=== PATIENT | male | born 1980 | race Caucasian/White ===

== ENCOUNTER 2016-06-08 11:27 | Inpatient (IN) ==
[2016-06-08 12:51] LABS: Bilirubin,Urine Negative (Negative); Blood,Urine Negative (Negative); Color,Urine Yellow (Yellow); Glucose,Urine (UA) Normal (Normal); Ketones,Urine Trace mg/dL (Negative); Leukocyte Esterase,Urine Negative (Negative); Nitrite,Urine Negative (Negative); PH,Urine 7.5 pH Units (5.0-8.0); Protein,Urine Negative (Neg-Trace); Specific Gravity,Urine 1.013 (1.010-1.025)
[2016-06-08 12:54] LABS: Bacteria,Urine None Seen per hpf (None-Few); Hyaline Casts,Urine None Seen per lpf (None-Few); RBC,Urine 0-3 per hpf (0-3); Squamous Epithelial Cell,Urine Few per lpf (None-Few)
[2016-06-08 13:00] LABS: Clarity,Urine Slightly Hazy (Clear)
[2016-06-08 13:01] LABS: Basophils % 0.3 %; Eosinophils # 0.1 K/mcL (0.0-0.6); Eosinophils % 0.7 %; Hematocrit 38.2 % (37.5-50.1); Hemoglobin 13.8 g/dL (12.9-16.9); Immature Granulocytes % 0.4 % (0-4); Lymphocytes # 2.1 K/mcL (0.6-4.6); Lymphocytes % 19.8 %; Mean Corpuscular HGB Conc 36.1 g/dL (31.6-35.5); Mean Corpuscular Hemoglobin 32.8 pg (28.0-33.3); Mean Corpuscular Volume 90.7 fL (83.0-100.0); Mean Platelet Volume 10.1 fL (9.4-12.4); Monocytes # 0.9 K/mcL (0.0-1.3); Monocytes % 8.8 %; Neutrophils # 7.4 K/mcL (1.6-8.9); Platelet Count 316 K/mcL (140-400); Red Blood Count 4.21 M/mcL (4.19-5.50); Red Cell Distribution Width 12.4 % (11.5-14.5)
[2016-06-08 13:10] LABS: Alanine Aminotransferase 20 Units/L (0-55); Albumin 3.3 g/dL (3.5-5.0); Albumin/Globulin Ratio 0.8 (1.1-2.2); Alkaline Phosphatase 110 Units/L (38-126); Amylase 35 Units/L (25-125); Aspartate Amino Transferase 15 Units/L (5-34); BUN/Creatinine Ratio 10 (6-26); Bilirubin,Direct 0.4 mg/dL (0.0-0.5); Bilirubin,Indirect 0.5 mg/dL (0.0-1.2); Bilirubin,Total 0.9 mg/dL (0.2-1.2); Blood Urea Nitrogen 9 mg/dL (8-26); Calcium 9.5 mg/dL (8.6-10.8); Carbon Dioxide 23 mEq/L (19-29); Chloride 101 mEq/L (98-109); Globulin 4.4 g/dL (2.4-3.5); Glucose 98 mg/dL (70-99); Lipase 11 Units/L (8-78); Osmolality,Calculated 281 (280-300); Potassium 3.5 mEq/L (3.5-4.5); Sodium 136 mEq/L (136-145); Total Protein 7.7 g/dL (6.0-8.3); eGFR For African Americans > 60 (> 60); eGFR For Non-African Americans > 60 (> 60)
--- NOTE | 2016-06-08 14:07 | Emergency Department Note ---
Disposition Clinical Impression: Abdominal abscess Disposition: Admitted As Inpatient Condition: Good Abdominal Pain HPI - General Chief Complaint: ED Abdominal Pain Stated Complaint: abd pain Time Seen by Provider: 06/08/16 12:17 Source: patient, other Mode of arrival: ambulatory Limitations: other (mild MRDD) Nursing Notes Reviewed: Yes Vital Signs Reviewed: Yes - History of Present Illness Pt Subjective Complaint: abdominal pain Onset (ago): day(s) (10) Consistency: intermittent Location: suprapubic Pain Scale: 5 Quality: aching Radiation: none Improves with: nothing Worsens with: nothing Associated symptoms: Denies: diarrhea, fever, chills, hematemesis, hematochezia Treatments prior to arrival: none - Related Data Home Medications Medication Instructions Recorded Confirmed No Known Home Drugs 06/08/16 06/08/16 Allergies Allergy/AdvReac Type Severity Reaction Status Date / Time No Known Allergies Allergy Verified 06/08/16 12:04 All systems ED: reviewed and negative except as stated. Constitutional: Denies: fever, chills, weakness Respiratory: Denies: cough Gastrointestinal: Denies: vomiting, diarrhea, melena, hematochezia Abdominal Pain PMH - Past Medical History Medical history: Reports: other Male Surgical History: Reports: other Psychiatric history: Reports: other - Social History Smoking status: Current every day smoker Alcohol use: Reports: none Drug use: Reports: none Physical Exam - General Limitations: other General appearance: alert, in no apparent distress - Head Head exam: atraumatic, normocephalic, normal inspection - Eye Eye exam: Present: normal appearance, PERRL, EOMI - Expanded Eye Exam Pupils: Left: reactive - ENT ENT exam: normal exam, normal oropharynx, mucous membranes moist - Expanded ENT Exam External ear exam: Present: normal external inspection Mouth exam: Present: normal external inspection Teeth exam: Present: normal inspection Throat exam: Present: normal inspection - Neck Neck exam: Present: normal inspection, full ROM, trachea midline - Chest Chest inspection: Present: normal inspection, symmetric chest wall rise - Respiratory Respiratory exam: Present: normal lung sounds bilaterally - Cardiovascular Cardiovascular exam: Present: regular rate, normal rhythm, normal heart sounds - Abdominal Exam Abdominal exam: Present: soft, normal bowel sounds. Absent: guarding, rebound Abdominal tenderness: Present: suprapubic, mild - Extremities Exam Extremities exam: Present: normal inspection, full ROM. Absent: tenderness, pedal edema - Expanded Upper Extremity Exam Shoulder exam: Present: normal inspection, full ROM Arm exam: Present: normal inspection, full ROM Elbow exam: Present: normal inspection, full ROM Forearm/Wrist exam: Present: normal inspection, full ROM Hand exam: Present: normal inspection, full ROM Vascular exam: Normal: capillary refill, radial pulse - Expanded Lower Extremity Exam Hip/Pelvis exam: Present: normal inspection, full ROM Upper leg exam: Present: normal inspection, full ROM Knee exam: Present: normal inspection, full ROM Lower leg exam: Present: normal inspection, full ROM Ankle exam: Present: normal inspection, full ROM Foot/toe exam: Present: normal inspection, full ROM Neurovascular/Tendon exam: Absent: motor deficit, sensory deficit, tendon deficit - Back Exam Back exam: Present: normal inspection, full ROM. Absent: tenderness - Neurological Exam Neurological exam: Present: alert, oriented X3 - Expanded Neurological Exam Patient oriented to: Present: person, place, time Coma Scale Eye Opening: Spontaneous Coma Scale Motor Response: Obeys Commands Coma Scale Verbal Response: Oriented Coma Scale Total: 15 - Psychiatric Psychiatric exam: Present: normal affect, normal mood - Skin Skin exam: Present: warm, dry, intact, normal color Course Vital Signs Temperature 98 F 06/08/16 11:58 Pulse Rate 98 06/08/16 11:58 Respiratory Rate 16 06/08/16 11:58 Blood Pressure 106/75 06/08/16 11:58 O2 Sat by Pulse Oximetry 100 06/08/16 11:58 Temperature 98 F 06/08/16 11:58 Pulse Rate 98 06/08/16 11:58 Respiratory Rate 16 06/08/16 11:58 Blood Pressure 106/75 06/08/16 11:58 O2 Sat by Pulse Oximetry 100 06/08/16 11:58 Oxygen Delivery Oxygen Delivery Room Air Abdominal Pain - MDM Narrative Medical decision making narrative: Dr. chang consulted recommended abx dr. hernández admitted, dr. pratt recommends GI no acute surgical intervention - Differential Diagnosis Differential Diagnosis: Likely: abdominal pain non-specific, abdominal pain mimics ectopic , acute appendicitis, constipation, colonic obstruction , diverticulitis, ischemic bowel, pancreatitis, small bowel obstruction - Medical Records Medical records reviewed: Yes I reviewed the patient's medical records. - Lab Data Lab results reviewed: Yes I reviewed the patient's lab results. Result diagrams: 06/08/16 12:25 06/08/16 12:25 Lab Results 06/08/16 06/08/16 06/08/16 Range/Units 12:23 12:25 12:25 WBC 10.5 (4.3-11.1) K/mcL RBC 4.21 (4.19-5.50) M/mcL Hgb 13.8 (12.9-16.9) g/dL Hct 38.2 (37.5-50.1) % MCV 90.7 (83.0-100.0) fL MCH 32.8 (28.0-33.3) pg MCHC 36.1 H (31.6-35.5) g/dL RDW 12.4 (11.5-14.5) % Plt Count 316 (140-400) K/mcL MPV 10.1 (9.4-12.4) fL Immature Gran % 0.4 (0-4) % Seg Neutrophils % 70.0 % Lymphocytes % 19.8 % Monocytes % 8.8 % Eosinophils % 0.7 % Basophils % 0.3 % Neutrophils # 7.4 (1.6-8.9) K/mcL Lymphocytes # 2.1 (0.6-4.6) K/mcL Monocytes # 0.9 (0.0-1.3) K/mcL Eosinophils # 0.1 (0.0-0.6) K/mcL Basophils # 0.0 (0.0-0.2) K/mcL Sodium 136 (136-145) mEq/L Potassium 3.5 (3.5-4.5) mEq/L Chloride 101 (98-109) mEq/L Carbon Dioxide 23 (19-29) mEq/L BUN 9 (8-26) mg/dL Creatinine 0.87 (0.72-1.25) mg/dL Est GFR ( Amer) > 60 (> 60) Est GFR (Non-Af Amer) > 60 (> 60) BUN/Creatinine Ratio 10 (6-26) Glucose 98 (70-99) mg/dL Calculated Osmolality 281 (280-300) Calcium 9.5 (8.6-10.8) mg/dL Total Bilirubin 0.9 (0.2-1.2) mg/dL Direct Bilirubin 0.4 (0.0-0.5) mg/dL Indirect Bilirubin 0.5 (0.0-1.2) mg/dL AST 15 (5-34) Units/L ALT 20 (0-55) Units/L Alkaline Phosphatase 110 (38-126) Units/L Serum Total Protein 7.7 (6.0-8.3) g/dL Albumin 3.3 L (3.5-5.0) g/dL Globulin 4.4 H (2.4-3.5) g/dL Albumin/Globulin Ratio 0.8 L (1.1-2.2) Amylase 35 (25-125) Units/L Lipase 11 (8-78) Units/L Urine Color Yellow (Yellow) Urine Clarity Slightly Hazy (Clear) Urine pH 7.5 (5.0-8.0) pH Units Ur Specific [place] 1.013 (1.010-1.025) Urine Protein Negative (Neg-Trace) mg/dL Urine Glucose (UA) Normal (Normal) mg/dL Urine Ketones Trace H (Negative) mg/dL Urine Blood Negative (Negative) Urine Nitrite Negative (Negative) Urine Bilirubin Negative (Negative) Urine Urobilinogen 4.0 H (Normal) mg/dL Ur Leukocyte Esterase Negative (Negative) Urine Microscopic RBC 0-3 (0-3) per hpf Ur Squamous Epith Cells Few (None-Few) per lpf Urine Bacteria None Seen (None-Few) per hpf Hyaline Casts None Seen (None-Few) per lpf Ur Culture Indicated? NO (NO) - Radiology Data Radiology results reviewed: Yes I reviewed the patient's radiology results.
[2016-06-08] MEDS ORDERED: MetroNIDAZOLE 500 MG/100 ML 500 MG/100 ML BAG IVPB STA (14:53)
[2016-06-08] MEDS ORDERED: Acetaminophen 325 MG TABLET PO PRN (15:34)
[2016-06-08] MEDS ORDERED: Naloxone 0.4 MG/ML INJ IVP PRN (15:34)
[2016-06-08] MEDS ORDERED: *HR* Morphine 2 MG/ML SYRINGE IVP PRN (15:34)
--- NOTE | 2016-06-08 16:42 | Internal Med History&Physical ---
<Bethany Cartagena - Last Filed: 06/08/16 17:09> Date of Encounter: 06/08/16 Time of Encounter: 16:25 Assessment and Plan (1) Suprapubic abdominal pain Current visit: Yes Status: Acute Patient with 5 mo history of intermittent achy suprapubic abdominal pain with associated loose mucous covered stools. On Exam patient is afebrile. There is tenderness to the suprapubic region without signs of an acute abdomen. WBC normal 10.5. CT abdomen/pelvis showing mild wall thickening and submucosal fatty deposition in the terminal ileum with an adjacent complex fluid collection suspicious for an abscess. There is secondary inflammation noted around the appendix and sigmoid colon. Finding are suggestive of Crohn's disease with contained perforation. Plan: -Patient made NPO, started maintenance fluids (NS 100cc/hr) -IV Abx Cipro/Metronidazole -Also start mesalamine. -Telemetry/Vitals Q4H -CRP, ESR, c-diff, ANCA-Ab, Saccharomyces cerevisiae abs ordered -Pain control Tylenol (mild pain), [place] 5-325 Q4hr (moderate pain), Morphine 2mgIVP Q4hr (severe pain) -Surgery/GI consult, appreciate any further recommendations (2) Abdominal abscess Current visit: Yes Status: Acute See above. (3) History of hepatitis Current visit: Yes Status: Acute Patient reports prior hospitalization at [facility] for what sounds like acute hepatitis B and C. - Will check viral hepatitis panel. - Consider obtain medial record from [facility]. (4) DVT prophylaxis Current visit: Yes Status: Acute - SQ heparin. Internal Medicine - H&P: HPI Chief complaint: "My stomach hurts" Admitted From: Emergency Dept Plans for Post Hospital Care: Home History of present illness: Mr. Pennington is a 35 year old male with a history of smoking, HepB/C, IV drug use, who presented to the [facility] ED with the chief complaint of "my stomach hurts ". At baseline the patient is developmentally delayed and lives with a caregiver and one other roommate arranged by [employer]. The patient does not have a PCP and his CODE STATUS is full code. The history was obtained from the patient as well as an employee of [employer] who has accompanied him to the hospital. The patient reports 5 months of intermittent 5/10 suprapubic abdominal pain as well as loose stools for 3-4 months with clear mucous noted on tissue paper. The pain is relieved by OTC gas medication. Nothing makes his pain worse. He denies recent weight change, fever , chills, n/v, constipation, blood in his stool, or any other symptoms. His pain has not limited oral intake. Denies family history of IBD or other GI problems. Denies drinking alcohol or taking any other OTC or RX medications on a daily basis. Patient reports prior hospitalization at [facility] for what sounds like acute hepatitis B and C. Patient admits history of IVDU in the past. In the ED vitals T98.0 H98 RR16 BP 106/75 SpO2 100% on RA. CT of the abdomen/ pelvis without contrast was done which showed mild wall thickening and submucosal fatty deposition in the terminal ileum with an adjacent complex fluid collection suspicious for an abscess. There is secondary inflammation noted around the appendix and sigmoid colon. Finding are suggestive of Crohn's disease with contained perforation. The patient was admitted to internal medicine for abdominal pain and abscess, Attending Dr. Seymour. Past Med Surg Social Fam HX - Past Medical History Medical history: hepatitis (B/C - diagnosed at [facility]), other (developmental delay ) Psychiatric history: other - Social History Smoking Status: Current every day smoker Smokeless Tobacco Status: No (Both e-cigarette and cigarettes ) Alcohol use: none Drug use: none Current living situation: Home ([facility] Living home with caregiver and one roommate) Activity Level: Independent ambulation Recent Out of Country Travel Within the Last 8 Weeks: No Internal Medicine - H&P: Meds No Known Home Drugs 06/08/16 [History] Allergies No Known Allergies Allergy (Verified 06/08/16 12:04) All Systems PM: A 10-system review of systems was performed and is negative for pertinent findings except as documented above in the HPI. - Constitutional Constitutional: no anorexia, no chills, no fever(s) - EENT Eyes: no change in vision Ears: no decreased hearing Nose, mouth and throat: no dysphagia, no mouth lesions, no mouth pain, no odynophagia - Cardiovascular Cardiovascular ROS IM: no chest pain, no diaphoresis, no palpitations - Respiratory Respiratory: no cough, no dyspnea, no hemoptysis - Gastrointestinal Gastrointestinal: as per HPI - Genitourinary Genitourinary ROS male: no difficulty urinating, no dysuria, no hematuria - Musculoskeletal Musculoskeletal ROS IM: no arthralgias, no back pain, no myalgias - Integumentary Integumentary IM: no pruritus, no rash - Neurological Neurological ROS: no focal weakness, no numbness, no tingling - Hematologic/Lymphatic Hematologic/Lymphatic: no easy bleeding, no easy bruising - Constitutional Vitals: Temp Pulse Resp BP Pulse Ox 98 F 98 18 116/72 100 06/08/16 11:58 06/08/16 11:58 06/08/16 15:16 06/08/16 15:16 06/08/16 11:58 General appearance: Present: cooperative, A&O X 3, pleasant. Absent: no acute distress - Head Head exam: Present: atraumatic, normocephalic - Eye Eye exam: Present: PERRL, conjuntiva pink, sclera anicteric Pupils: Present: PERRL - Neck Neck exam general surgery: Present: normal inspection, trachea midline - Respiratory Respiratory exam: Present: CTAB. Absent: accessory muscle use, prolonged expiratory phase, rales, respiratory distress, rhonchi, wheezes - Cardiovascular Cardiovascular exam: Present: RRR, +S1, +S2. Absent: clicks, diastolic murmur, gallop, rubs, systolic murmur - GI/Abdominal GI/Abdominal exam: Present: hyperactive bowel sounds, soft, tenderness (mild tenderness to suprapubic region). Absent: bruit, distended, firm, guarding, rebound, rigid - Rectal Rectal exam: Present: deferred - Extremities Exam Extremities exam: Present: normal inspection, warm. Absent: calf tenderness, pedal edema Additional comments: posterior tibial pulses 2/4 B/L LE - Neurological Exam Neurological exam: Present: CN II-XII intact, oriented X3, no focal deficits. Absent: pronater drift, facial droop, speech deficit - Psychiatric Psychiatric exam: Present: normal affect, normal mood - Skin Skin exam: Present: dry, intact Internal Med - H&P Results - Labs CBC & Chem 7: 06/08/16 12:25 06/08/16 12:25 - Impressions ITS Impressions Abdomen/Pelvis CT 06/08/16 12:51 IMPRESSION: 1. Complex fluid collection identified in the pelvis measuring 6.4 x 4.4 x 4.1 cm, compatible with an abscess. The collection appears to be adjacent to the terminal ileum, suggestive of Crohn's disease with contained perforation. Extension of this fluid collection is seen to the sigmoid colon, risk for fistula formation. Other etiologies such as perforated Meckel's diverticulum is considered less likely. 2. Appendix and sigmoid colon demonstrate secondary inflammation. Findings were discussed with Dr. Vargas on 06/08/2016 at 2:07 p.m. D/ / 06/08/2016 14:14:54 Margarita Huggins MD / lise Interpreting Provider: Margarita Huggins MD <Leno Seymour T - Last Filed: 06/08/16 17:38> Internal Medicine - H&P: HPI History of present illness: Mr. Pennington is a 35 year old male All Systems PM: A 10-system review of systems was performed and is negative for pertinent findings except as documented above in the HPI. - Constitutional Vitals: Temp Pulse Resp BP Pulse Ox 98.1 F 85 16 107/73 97 06/08/16 16:23 06/08/16 16:23 06/08/16 16:23 06/08/16 16:23 06/08/16 16:23 Internal Med - H&P Results - Labs CBC & Chem 7: 06/08/16 12:25 06/08/16 12:25 - Attending Attestation I examined this patient and my medical decision-making was reviewed with the [facility] TECHNICIAN/PA/Advanced Practice Nurse/Resident Physician. I agree with the documented findings, disposition and treatment plan as described except to the extent set forth below. Seen at bedside, with resident and telephonic nurse case manager 35 Y/O M with hx of recent hospitalization for Hep B/C, MRDD He endorsed >4 months history of abdominal pain worse inn RLQ and diarrhea with mucus, no fever or chills, no chronic back pain, no hematochezia, denies family hx . Daily smoker Physical exam: Not toxic looking, VSS, speaks full sentences no mouth sores, chest is clear, S1, s2, RLQ and LLQ tenderness, no guarding, no peritoneal signs , no spine tenderness Labs and Imaging reviewed: CBC/Chem/LFT unremarkable Abd CT with terminal ileum thickening as well s submucosal fatty deposition adjacent to terminal ileum with abscess formation, possible enterocolic fistula , loculated peritoneal fluid. A/P: suspected Chron's disease with phlegmon. Consult GI, Surgery, Start mesalamine, send ANCA/ASCA/CRP/ESR/Hepatitis panel, r/o C.diff Continue cipro/flagyl. start mesalamine, SW consult Rest of details as in resident's documentation
[2016-06-08] MEDS: 0.9 % Sodium Chloride 1,000 ML IVC SCH (17:42)
[2016-06-08] MEDS: Mesalamine 250 MG CAPSULE.ER PO SCH ×2 (17:52→22:13)
[2016-06-08] MEDS: *HR* Heparin 5,000 UNIT/ML VIAL SQ SCH (17:56)
--- NOTE | 2016-06-08 17:56 | General Surgery Consult Note ---
<Clementina Tomlinson - Last Filed: 06/08/16 18:00> Date of Encounter: 06/08/16 Time of Encounter: 17:00 Assessment and Plan (1) Abdominal abscess Current Visit: Yes Status: Acute Recommend GI consultation for suspected Crohn's disease IR consult for drainage of abscess- notified today NPO after midnight IV antibiotics- Cipro and Flagyl Supportive care/pain control Serial abdominal exams No urgent surgical intervention indicated at this time PT/INR in the am prior to IR drainage (2) Suprapubic abdominal pain Current Visit: Yes Status: Acute Supportive care/pain control Serial abdominal exams IR drainage of abscess 06/09/16 IV antibiotics- Cipro and Flagyl (3) DVT prophylaxis Current Visit: Yes Status: Acute Heparin 5,000 units SQ twice daily for DVT prophylaxis History of Present Illness Consult date: 06/08/16 Reason for consult: abdominal pain Requesting physician: Bethany Cartagena History of present illness: Mr. Pennington is a very pleasant 35 year old male who presented to the ED with at least a 5 month history of lower abdominal pain. The history is obtained from the patient and his mattress spring encaser who is at the bedside. He resides with a caregiver and a roomate who are currently not present. the mattress spring encaser states that she interacts with the patient 2 times per month. The patient states that the pain comes and goes. He states that it is comes and goes in various locations. He states that it has been located in the suprapubic region for the past 2 days. Denies any specific radiating factors. Denies any nausea or vomiting. Denies any fevers or chills. He does admit to diarrhea up 3-4 times per day. He states that he does pass mucous in his stools. Denies any constipation. Denies any changes in weight. Denies any melena or hematochezia. Denies any difficulty with urination. We have been asked to see and evaluate the patient for his abnormal CT scan findings. Past Med Surg Social Fam HX - Past Medical History Source: old records reviewed Medical history: hepatitis (B/C - diagnosed at [facility]), other (developmental delay ) Psychiatric history: other - Social History Smoking Status: Current every day smoker Smokeless Tobacco Status: No (Both e-cigarette and cigarettes ) Alcohol use: none Drug use: none Current living situation: Correction (Lives with a caregiver and a roomate) Activity Level: Independent ambulation Medications and Allergies No Known Home Drugs 06/08/16 [History] Allergies No Known Allergies Allergy (Verified 06/08/16 12:04) Review of Systems All systems PM: reviewed and no additional remarkable complaints except as stated (in the HPI) All systems PM: A 10-system review of systems was performed and is negative for pertinent findings except as documented above in the HPI. General Surgery Exam Initial Vital Signs Temp Pulse Resp BP Pulse Ox 98 F 98 16 106/75 100 06/08/16 11:58 06/08/16 11:58 06/08/16 11:58 06/08/16 11:58 06/08/16 11:58 - General physical appearance well developed, well nourished, no distress - Eyes normal ocular movement - ENT normal mucosa, atraumatic, normocephalic - Neck trachea midline - Respiratory normal expansion, normal respiratory effort, clear to auscultation - Cardiovascular Cardiovascular exam: Present: RRR - Abdomen Abdomen general surgery: Present: bowel sounds present, soft, tender Abdominal Tenderness: Present: suprapubic - Integumentary Integumentary general surgery: Present: warm and dry - Neurologic Present: CN 2-12 grossly intact - Musculoskeletal Present: normal gait, normal posture - Psychiatric Psychiatric general surgery: Present: appropriate, oriented to person, oriented to place, oriented to time, speech is normal, other (developmentally delayed) Exam Initial Vital Signs Temp Pulse Resp BP Pulse Ox 98 F 98 16 106/75 100 06/08/16 11:58 06/08/16 11:58 06/08/16 11:58 06/08/16 11:58 06/08/16 11:58 Results - Labs 06/08/16 12:25 06/08/16 12:25 Abnormal lab results MCHC 36.1 g/dL (31.6-35.5) H 06/08/16 12:25 ESR 71 mm/hr (0-10) H 06/08/16 16:29 C-Reactive Protein 111 mg/L (Less than 5) H 06/08/16 16:29 Albumin 3.3 g/dL (3.5-5.0) L 06/08/16 12:25 Globulin 4.4 g/dL (2.4-3.5) H 06/08/16 12:25 Albumin/Globulin Ratio 0.8 (1.1-2.2) L 06/08/16 12:25 Urine Ketones Trace mg/dL (Negative) H 06/08/16 12:23 Urine Urobilinogen 4.0 mg/dL (Normal) H 06/08/16 12:23 All other labs normal. - Imaging CT scan - abdomen: report reviewed CT scan - pelvis: report reviewed Additional studies: Abdomen/Pelvis CT 06/08/16 12:51 IMPRESSION: 1. Complex fluid collection identified in the pelvis measuring 6.4 x 4.4 x 4.1 cm, compatible with an abscess. The collection appears to be adjacent to the terminal ileum, suggestive of Crohn's disease with contained perforation. Extension of this fluid collection is seen to the sigmoid colon, risk for fistula formation. Other etiologies such as perforated Meckel's diverticulum is considered less likely. 2. Appendix and sigmoid colon demonstrate secondary inflammation. Findings were discussed with Dr. Vargas on 06/08/2016 at 2:07 p.m. D/ / 06/08/2016 14:14:54 Margarita Huggins MD / lise Interpreting Provider: Margarita Huggins MD Consult Discharge Plan - Plan Referrals: NO,PCP [Primary Care Provider] - - Attending Attestation I examined this patient and my medical decision-making was reviewed with the WHITEWASHER/PA/Advanced Practice Nurse/Resident Physician. I agree with the documented findings, disposition and treatment plan as described except to the extent set forth below. <Genna Castro - Last Filed: 06/10/16 10:17> Assessment and Plan (1) Terminal ileitis Current Visit: Yes Status: Acute pt CT scan shows terminal ileum inflammation with abscess that potentially the inflammation involves and is inflamming the colon. Patient denies history of diarrhea or bloody stools He is on antibiotics his abdominal pain is minimal given his CT results consult IR to place drain GI has been consulted as well will follow allowing in case any surgical intervention is needed but none is required at this time. Qualifiers: Digestive disease complication type: with abscess Qualified Code(s): K50.014 - Crohn's disease of small intestine with abscess (2) Abdominal abscess Current Visit: Yes Status: Acute (3) Suprapubic abdominal pain Current Visit: Yes Status: Acute History of Present Illness History of present illness: Patient states he has only had RLQ pain for the last few days. He is unable to describe what the pain feels like. He denies nausea, vomiting. He has had no Diarrhea or constipation. He denies any blood in his stool. He has never had pain like this previously. He is a very poor historian and has difficulty answering all but the simplest questions. Review of Systems All systems PM: A 10-system review of systems was performed and is negative for pertinent findings except as documented above in the HPI. General Surgery Exam Initial Vital Signs Temp Pulse Resp BP Pulse Ox 98 F 98 16 106/75 100 06/08/16 11:58 06/08/16 11:58 06/08/16 11:58 06/08/16 11:58 06/08/16 11:58 - Abdomen Abdomen general surgery: Present: bowel sounds present, soft, tender Abdominal Tenderness: Present: suprapubic (somewhat firm in the suprapubic area) - Integumentary Integumentary general surgery: Present: warm and dry. Absent: diaphoresis - Neurologic Present: CN 2-12 grossly intact - Musculoskeletal Present: normal gait, normal posture - Psychiatric Psychiatric general surgery: Present: A&Ox3 Exam Initial Vital Signs Temp Pulse Resp BP Pulse Ox 98 F 98 16 106/75 100 06/08/16 11:58 06/08/16 11:58 06/08/16 11:58 06/08/16 11:58 06/08/16 11:58 Results - Labs 06/10/16 08:03 06/10/16 08:03 Abnormal lab results RBC 3.73 M/mcL (4.19-5.50) L 06/10/16 08:03 Hgb 11.5 g/dL (12.9-16.9) L 06/10/16 08:03 Hct 34.1 % (37.5-50.1) L 06/10/16 08:03 ESR 71 mm/hr (0-10) H 06/08/16 16:29 PT 15.6 Seconds (9.4-12.1) H 06/09/16 04:42 Potassium 3.4 mEq/L (3.5-4.5) L 06/10/16 08:03 BUN 4 mg/dL (8-26) L 06/10/16 08:03 Creatinine 0.71 mg/dL (0.72-1.25) L 06/10/16 08:03 Glucose 101 mg/dL (70-99) H 06/10/16 08:03 Calcium 8.3 mg/dL (8.6-10.8) L 06/10/16 08:03 C-Reactive Protein 111 mg/L (Less than 5) H 06/08/16 16:29 Albumin 2.8 g/dL (3.5-5.0) L 06/09/16 04:42 Globulin 3.8 g/dL (2.4-3.5) H 06/09/16 04:42 Albumin/Globulin Ratio 0.7 (1.1-2.2) L 06/09/16 04:42 Urine Ketones Trace mg/dL (Negative) H 06/08/16 12:23 Urine Urobilinogen 4.0 mg/dL (Normal) H 06/08/16 12:23 Hep B Core IgM Ab Reactive (Nonreactive) H 06/09/16 04:42 Hepatitis C Ab Screen Reactive (Nonreactive) H 06/09/16 04:42 Diabetes panel 06/10/16 Range/Units 08:03 Sodium 138 (136-145) mEq/L Potassium 3.4 L (3.5-4.5) mEq/L Chloride 108 (98-109) mEq/L Carbon Dioxide 21 (19-29) mEq/L BUN 4 L (8-26) mg/dL Creatinine 0.71 L (0.72-1.25) mg/dL Glucose 101 H (70-99) mg/dL Calcium 8.3 L (8.6-10.8) mg/dL Calcium panel 06/10/16 Range/Units 08:03 Calcium 8.3 L (8.6-10.8) mg/dL Pituitary panel 06/10/16 Range/Units 08:03 Sodium 138 (136-145) mEq/L Potassium 3.4 L (3.5-4.5) mEq/L Chloride 108 (98-109) mEq/L Carbon Dioxide 21 (19-29) mEq/L BUN 4 L (8-26) mg/dL Creatinine 0.71 L (0.72-1.25) mg/dL Glucose 101 H (70-99) mg/dL Calcium 8.3 L (8.6-10.8) mg/dL Adrenal panel 06/10/16 Range/Units 08:03 Sodium 138 (136-145) mEq/L Potassium 3.4 L (3.5-4.5) mEq/L Chloride 108 (98-109) mEq/L Carbon Dioxide 21 (19-29) mEq/L BUN 4 L (8-26) mg/dL Creatinine 0.71 L (0.72-1.25) mg/dL Glucose 101 H (70-99) mg/dL Calcium 8.3 L (8.6-10.8) mg/dL All other labs normal. - Imaging CT scan - abdomen: report reviewed, image reviewed CT scan - pelvis: report reviewed, image reviewed (CT scans personally reviewed by myself) - Attending Attestation I examined this patient and my medical decision-making was reviewed with the WHITEWASHER/PA/Advanced Practice Nurse/Resident Physician. I agree with the documented findings, disposition and treatment plan as described except to the extent set forth below.
[2016-06-08] MEDS: *HR* HYDROcodone/Acet 5/325 mg TABLET PO PRN (20:00)
[2016-06-09] MEDS: MetroNIDAZOLE 500 MG/100 ML 500 MG/100 ML BAG IVPB SCH ×3 (00:09→15:10)
[2016-06-09] MEDS: 0.9 % Sodium Chloride 1,000 ML IVC SCH ×3 (05:15→21:41)
[2016-06-09] MEDS: *HR* Heparin 5,000 UNIT/ML VIAL SQ SCH ×2 (05:16→18:06)
[2016-06-09] MEDS: *HR* HYDROcodone/Acet 5/325 mg TABLET PO PRN ×3 (05:17→21:54)
[2016-06-09 06:01] LABS: Basophils % 0.3 %; Eosinophils # 0.1 K/mcL (0.0-0.6); Eosinophils % 0.7 %; Hematocrit 34.9 % (37.5-50.1); Immature Granulocytes % 0.4 % (0-4); Lymphocytes # 1.5 K/mcL (0.6-4.6); Lymphocytes % 15.4 %; Mean Corpuscular HGB Conc 34.1 g/dL (31.6-35.5); Mean Corpuscular Hemoglobin 31.5 pg (28.0-33.3); Mean Corpuscular Volume 92.3 fL (83.0-100.0); Monocytes # 0.8 K/mcL (0.0-1.3); Neutrophils # 7.2 K/mcL (1.6-8.9); Platelet Count 289 K/mcL (140-400); Red Blood Count 3.78 M/mcL (4.19-5.50); Red Cell Distribution Width 12.4 % (11.5-14.5); Segmented Neutrophils % 75.2 %
[2016-06-09 06:03] LABS: Hemoglobin 11.9 g/dL (12.9-16.9)
[2016-06-09 06:11] LABS: INR 1.4; Prothrombin Time 15.6 Seconds (9.4-12.1)
[2016-06-09 06:17] LABS: Alanine Aminotransferase 18 Units/L (0-55); Albumin 2.8 g/dL (3.5-5.0); Albumin/Globulin Ratio 0.7 (1.1-2.2); Alkaline Phosphatase 94 Units/L (38-126); Aspartate Amino Transferase 14 Units/L (5-34); BUN/Creatinine Ratio 9 (6-26); Bilirubin,Total 0.7 mg/dL (0.2-1.2); Blood Urea Nitrogen 7 mg/dL (8-26); Calcium 8.5 mg/dL (8.6-10.8); Carbon Dioxide 23 mEq/L (19-29); Chloride 106 mEq/L (98-109); Globulin 3.8 g/dL (2.4-3.5); Glucose 77 mg/dL (70-99); Osmolality,Calculated 283 (280-300); Potassium 3.8 mEq/L (3.5-4.5); Sodium 138 mEq/L (136-145); Total Protein 6.6 g/dL (6.0-8.3); eGFR For African Americans > 60 (> 60); eGFR For Non-African Americans > 60 (> 60)
[2016-06-09 07:11] LABS: Hepatitis A Antibody IgM Nonreactive (Nonreactive); Hepatitis B Surface Antigen Nonreactive (Nonreactive)
[2016-06-09 07:12] LABS: Hepatitis B Core IgM Reactive (Nonreactive); Hepatitis C Virus Antibody Reactive (Nonreactive)
[2016-06-09] MEDS: Mesalamine 250 MG CAPSULE.ER PO SCH ×4 (10:25→21:40)
--- NOTE | 2016-06-09 12:09 | Gastroenterology Consult Note ---
<AzevedoSamuel nix Mayra - Last Filed: 06/09/16 12:07> Date of Encounter: 06/09/16 Time of Encounter: 10:40 - Assessment and plan (1) Abdominal abscess Current Visit: Yes Status: Acute Assessment and plan: CT A/P without contrast showscomplex fluid collection, suspicious for abscess, adjacent to the terminal ileum, suggestive of Crohn's disease with contained perforation. CT A/P with oral and IV contrast ordered to evaluate for fistula formation.continue IV Cipro and Flagyl. IR to drain the abscess today. (2) Suprapubic abdominal pain Current Visit: Yes Status: Acute (3) History of hepatitis Current Visit: Yes Status: Acute Assessment and plan: History of hepatitis B/C. - Time Spent With Patient Total time spent is greater than 50% in coordination of care (as documented) at patient's floor/unit and/or counseling patient: GI History of Present Illness - Data of Consult Patient: new to practice Consult date: 06/09/16 Requesting Physician: Mariam Taylor CNP - Consult Narrative Reason for consult: possible Crohn's disease History of present illness: Mr. Pennington is a 35 year old male with PMHx of Hepatitis B/C, IV drug use who presented to the ED with complaint of abdominal pain. The patient is developmentally delayed and lives with a caregiver and another roommate. He denies fever, chills, nausea, or vomiting. He reports 3-4 episodes of diarrhea daily with passing some mucous. He denies melena or hematochezia. CT A/P without contrast shows complex fluid collection, suspicious for abscess, adjacent to the terminal ileum, suggestive of Crohns disease with contained perforation. Concerned for fistula formation. 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 - diagnosed at [facility]), other (developmental delay ) Psychiatric history: other - Social History Smoking Status: Current every day smoker Smokeless Tobacco Status: No (Both e-cigarette and cigarettes ) Alcohol use: none Drug use: none - Gastrointestinal Gastrointestinal: Present: as per HPI - Constitutional Constitutional: as per HPI - EENT Eyes: as per HPI Ears: Present: as per HPI Nose, mouth and throat: Present: as per HPI - Cardiovascular Cardiovascular ROS: Present: as per HPI - Respiratory Respiratory IM: Present: as per HPI - Genitourinary Genitourinary: Absent: change in color, Urinary frequency - Neurological ROS Neurological GI: Present: as per HPI - Hematologic/Lymphatic Hematologic/Lymphatic pediatric: Present: as per HPI - Musculoskeletal Musculoskeletal ROS GI: Present: as per HPI - Integumentary Integumentary GI: Present: as per HPI - Psychiatric ROS Psychiatric GI: Present: as per HPI - Endocrine Endocrine IM: Present: as per HPI - Constitutional Vitals: Temp Pulse Resp BP Pulse Ox 97.5 F L 73 18 117/70 98 06/09/16 10:57 06/09/16 10:57 06/09/16 10:57 06/09/16 10:57 06/09/16 10:57 General appearance: Present: cooperative, A&O X 3, no acute distress, answers questions appropriately - Head Head exam: Present: atraumatic, normocephalic - Eye Eye exam: Present: normal appearance, sclera anicteric - ENT ENT exam: Present: mucous membranes moist - Neck Neck exam general surgery: Present: normal inspection, trachea midline - Respiratory Respiratory exam: Present: CTAB. Absent: rales, rhonchi, wheezes - Cardiovascular Cardiovascular exam: Present: RRR, +S1, +S2 - GI/Abdominal GI/Abdominal exam: Present: soft, tenderness (suprapubic), no peritoneal signs. Absent: distended, firm, guarding - Rectal Rectal exam: Present: deferred - Extremities Exam Extremities exam: Present: warm - Neurological Exam Neurological exam: Present: no focal deficits Additional comments: developmentally delayed - Psychiatric Psychiatric exam: Present: normal affect, normal mood - Skin Skin exam: Present: dry, intact, normal color, warm Results - Labs CBC & Chem 7: 06/09/16 04:42 06/09/16 04:42 Labs: Last Result ESR 71 mm/hr (0-10) H 06/08/16 16:29 Calcium 8.5 mg/dL (8.6-10.8) L 06/09/16 04:42 C-Reactive Protein 111 mg/L (Less than 5) H 06/08/16 16:29 Entire Visit Hgb 11.9 g/dL (12.9-16.9) L D 06/09/16 04:42 Hct 34.9 % (37.5-50.1) L 06/09/16 04:42 PT 15.6 Seconds (9.4-12.1) H 06/09/16 04:42 Total Bilirubin 0.7 mg/dL (0.2-1.2) 06/09/16 04:42 AST 14 Units/L (5-34) 06/09/16 04:42 ALT 18 Units/L (0-55) 06/09/16 04:42 Amylase 35 Units/L (25-125) 06/08/16 12:25 Lipase 11 Units/L (8-78) 06/08/16 12:25 - ABG ABG results: PT/INR, D-dimer PT 15.6 Seconds (9.4-12.1) H 06/09/16 04:42 Consult Discharge Plan - Plan Referrals: NO,PCP [Primary Care Provider] - <Oly Jacobs - Last Filed: 06/09/16 18:00> Time of Encounter: 13:00 - Time Spent With Patient Total time spent is greater than 50% in coordination of care (as documented) at patient's floor/unit and/or counseling patient: GI History of Present Illness - Data of Consult Requesting Physician: Mariam Taylor CNP - Consult Narrative History of present illness: Mr. Pennington is a 35 year old male - Constitutional Vitals: Temp Pulse Resp BP Pulse Ox 98.1 F 82 17 115/71 97 06/09/16 15:42 06/09/16 15:42 06/09/16 15:42 06/09/16 15:42 06/09/16 15:42 Results - Labs CBC & Chem 7: 06/09/16 04:42 06/09/16 04:42 Labs: Last Result ESR 71 mm/hr (0-10) H 06/08/16 16:29 Calcium 8.5 mg/dL (8.6-10.8) L 06/09/16 04:42 C-Reactive Protein 111 mg/L (Less than 5) H 06/08/16 16:29 Entire Visit Hgb 11.9 g/dL (12.9-16.9) L D 06/09/16 04:42 Hct 34.9 % (37.5-50.1) L 06/09/16 04:42 PT 15.6 Seconds (9.4-12.1) H 06/09/16 04:42 Total Bilirubin 0.7 mg/dL (0.2-1.2) 06/09/16 04:42 AST 14 Units/L (5-34) 06/09/16 04:42 ALT 18 Units/L (0-55) 06/09/16 04:42 Amylase 35 Units/L (25-125) 06/08/16 12:25 Lipase 11 Units/L (8-78) 06/08/16 12:25 - ABG ABG results: PT/INR, D-dimer PT 15.6 Seconds (9.4-12.1) H 06/09/16 04:42 - Impressions Impressions Abdomen/Pelvis CT 06/09/16 12:00 IMPRESSION: 1. Similar appearance of complex fluid collection within the pelvis with surrounding inflammatory changes compatible with abscess. Changes of the terminal ileum are again suggestive of Crohn's disease. There is no evidence for gas within the pelvic fluid collection at this time. Additionally, oral contrast is present within the bowel lumen with no evidence for contrast extravasation and no evidence for contrast within the complex pelvic fluid collection. It is important to note that the contrast is not yet identified distal to the proximal colon with no contrast present within the sigmoid colon adjacent to the complex fluid collection which somewhat limits evaluation for a fistulous connection between the distal sigmoid colon and pelvic abscess. The absence of gas within a pelvic fluid collection would argue against definite fistula. D/ / Pawel Stewart MD / Pawel Stewart MD Interpreting Provider: Pawel Stewart MD - Attending Attestation I examined this patient and my medical decision-making was reviewed with the PAEDIATRIC SURGEON/PA/Advanced Practice Nurse/Resident Physician. I agree with the documented findings, disposition and treatment plan as described except to the extent set forth below. CT finding is concerning for Crohn disease with abdominal abscess now. Patient will be on IV antibiotics and will need a possible abscess drainage by IR.
--- NOTE | 2016-06-09 15:13 | General Surgery Progress Note ---
Date of Encounter: 06/09/16 Time of Encounter: 17:00 - Assessment and Plan (1) Abdominal abscess Current Visit: Yes Status: Acute GI consultation for suspected Crohn's disease IR consult for drainage of abscess- unable to be complete due to patient refusal today (will attempt again 06/10/16- patient now agreeable) May have clear liquids NPO after midnight IV antibiotics- Cipro and Flagyl Supportive care/pain control Serial abdominal exams No urgent surgical intervention indicated at this time agree with Shwetha Tomlinson assessment and plan (2) Suprapubic abdominal pain Current Visit: Yes Status: Acute Supportive care/pain control Serial abdominal exams IR drainage of abscess 06/10/16 IV antibiotics- Cipro and Flagyl (3) DVT prophylaxis Current Visit: Yes Status: Acute Heparin 5,000 units SQ twice daily for DVT prophylaxis Subjective Patient reports: no new complaints, feels better, still having pain, pain is less, voiding w/o difficulty, flatus, no bowel movement, afebrile Objective Vital Signs - Last 8 Hours Temp Pulse Resp BP Pulse Ox 06/09/16 10:57 97.5 F L 73 18 117/70 98 06/09/16 10:28 99 06/09/16 07:14 98.0 F 74 18 104/66 99 Intake and Output 06/08/16 06/09/16 06/09/16 23:59 07:59 15:59 Intake Total 300 / 300 1100 / 1100 Balance 300 / 300 1100 / 1100 Intake: IV Fluids 300 / 300 1100 / 1100 0.9 % Sodium Chloride 1, 1000 / 1000 000 ML @ 100 mls/hr IVC . Q10H [place] Rx#:[id number] Cipro 400 MG/200 ML 400 200 / 200 mg In 200 ml @ 200 mls/hr IVPB NOW STA Rx#: [id number] Flagyl 500 MG/100 ML 500 100 / 100 100 / 100 mg In 100 ml @ 100 mls/hr IVPB Q8HR [place] Rx#: [id number] Other: Meal NPO for breakfast # Voids 1 Weight 77.111 kg Blood Glucose* 85 81 73 Patient Weight 06/09/16 23:59 Weight 77.111 kg - General physical appearance well developed, well nourished, no distress - Eyes normal ocular movement - ENT normal mucosa, atraumatic, normocephalic - Neck Neck exam: trachea midline - Respiratory normal expansion, normal respiratory effort, clear to auscultation - Cardiovascular Cardiovascular exam: Present: RRR - Abdomen Abdomen: Present: bowel sounds present, soft, tender Abdominal Tenderness: suprapubic (somewhat firmer in the area) - Integumentary no rash, no growths - Neurologic CN 2-12 grossly intact - Musculoskeletal normal gait, normal posture - Psychiatric oriented to time, oriented to person, oriented to place, speech is normal, memory intact - Labs 06/10/16 08:03 06/10/16 08:03 Diabetes panel 06/09/16 Range/Units 04:42 Sodium 138 (136-145) mEq/L Potassium 3.8 (3.5-4.5) mEq/L Chloride 106 (98-109) mEq/L Carbon Dioxide 23 (19-29) mEq/L BUN 7 L (8-26) mg/dL Creatinine 0.78 (0.72-1.25) mg/dL Glucose 77 (70-99) mg/dL Calcium 8.5 L (8.6-10.8) mg/dL AST 14 (5-34) Units/L ALT 18 (0-55) Units/L Alkaline Phosphatase 94 (38-126) Units/L Albumin 2.8 L (3.5-5.0) g/dL Calcium panel 06/09/16 Range/Units 04:42 Calcium 8.5 L (8.6-10.8) mg/dL Albumin 2.8 L (3.5-5.0) g/dL Pituitary panel 06/09/16 Range/Units 04:42 Sodium 138 (136-145) mEq/L Potassium 3.8 (3.5-4.5) mEq/L Chloride 106 (98-109) mEq/L Carbon Dioxide 23 (19-29) mEq/L BUN 7 L (8-26) mg/dL Creatinine 0.78 (0.72-1.25) mg/dL Glucose 77 (70-99) mg/dL Calcium 8.5 L (8.6-10.8) mg/dL Adrenal panel 06/09/16 Range/Units 04:42 Sodium 138 (136-145) mEq/L Potassium 3.8 (3.5-4.5) mEq/L Chloride 106 (98-109) mEq/L Carbon Dioxide 23 (19-29) mEq/L BUN 7 L (8-26) mg/dL Creatinine 0.78 (0.72-1.25) mg/dL Glucose 77 (70-99) mg/dL Calcium 8.5 L (8.6-10.8) mg/dL Total Bilirubin 0.7 (0.2-1.2) mg/dL AST 14 (5-34) Units/L ALT 18 (0-55) Units/L Alkaline Phosphatase 94 (38-126) Units/L Albumin 2.8 L (3.5-5.0) g/dL Consult Discharge Plan - Plan Referrals: NO,PCP [Primary Care Provider] - - Attending Attestation I examined this patient and my medical decision-making was reviewed with the GOLF BALL TRIMMER/PA/Advanced Practice Nurse/Resident Physician. I agree with the documented findings, disposition and treatment plan as described except to the extent set forth below. I examined this patient and my medical decision-making was reviewed with the GOLF BALL TRIMMER/PA/Advanced Practice Nurse/Resident Physician. I agree with the documented findings, disposition and treatment plan as described except to the extent set forth below.
--- NOTE | 2016-06-09 19:10 | Internal Med Progress Note ---
Date of Encounter: 06/09/16 Time of Encounter: 21:39 - Assessment and plan (1) Abdominal abscess Current Visit: Yes Status: Acute (2) Suprapubic abdominal pain Current Visit: Yes Status: Acute (3) History of hepatitis Current Visit: Yes Status: Acute (4) DVT prophylaxis Current Visit: Yes Status: Acute Assessment and plan: 35 y/o male with pmh of admitted with intermittent achy abdominal pain and loose mucous covered stools. CT abdomen/pelvis showing mild wall thickening and submucosal fatty deposition in the terminal ileum with an adjacent complex fluid collection suspicious for an abscess. There is secondary inflammation noted around the appendix and sigmoid colon. Finding are suggestive of Crohn's disease with contained perforation. # Abdominal Pain: Likely crohns disease with perforation as above. Consulted IR for IR guided drainage of the abscess, however patient is evry anxious about the procedure and refused to give consent for the same. Expalined in great detail to the patient about the benefits vs risks of the procedure and the complication of the abscess remains undrained. He has agreed later this afternoon to consider the procedure. Will reconsult IR. # Abdominal abscess: As above. On broad spectrum abx coverage. Remains NPO on IV fluids. On mesalamine. ESR/CRP/ANCA-Ab, Saccharomyces cerv pending. Pain control # h/o hepatitis per hx: Panel pending # DVT Prophylaxis: Sub Q heparin - Time Spent With Patient 25 - 35 minutes - Subjective Interval history: seen and examined at bedside.Reports improvement in abdominal pain. He is very anxious about the procedure and refuses to have IR guided drainage. - Constitutional Vitals: Temp Pulse Resp BP Pulse Ox 98.1 F 82 17 115/71 97 06/09/16 15:42 06/09/16 15:42 06/09/16 15:42 06/09/16 15:42 06/09/16 15:42 General appearance: Present: cooperative, A&O X 3, pleasant. Absent: no acute distress - Head Head exam: Present: atraumatic, normocephalic - Eye Eye exam: Present: PERRL, conjuntiva pink, sclera anicteric Pupils: Present: PERRL - Neck Neck exam general surgery: Present: supple, trachea midline. Absent: lymphadenopathy - Respiratory Respiratory exam: Present: CTAB. Absent: accessory muscle use, rales, rhonchi, wheezes - Cardiovascular Cardiovascular exam: Present: RRR, +S1, +S2. Absent: diastolic murmur, gallop, rubs, systolic murmur - GI/Abdominal GI/Abdominal exam: Present: normal bowel sounds, soft, tenderness, no peritoneal signs. Absent: distended, splenomegaly - Extremities Exam Extremities exam: Present: warm, radial pulses palpable and symetrical. Absent : calf tenderness, cyanotic, pedal edema - Neurological Exam Neurological exam: Present: CN II-XII intact, oriented X3, no focal deficits. Absent: pronater drift, facial droop, speech deficit - Skin Skin exam: Present: dry, intact Internal Medicine: Result - Labs CBC & Chem 7: 06/09/16 04:42 06/09/16 04:42 Labs: Short CBC 06/09/16 Range/Units 04:42 WBC 9.6 (4.3-11.1) K/mcL Hgb 11.9 L D (12.9-16.9) g/dL Hct 34.9 L (37.5-50.1) % Plt Count 289 (140-400) K/mcL Neutrophils # 7.2 (1.6-8.9) K/mcL BMP 06/09/16 04:42 Sodium 138 Potassium 3.8 Chloride 106 Carbon Dioxide 23 BUN 7 L Creatinine 0.78 Glucose 77 Calcium 8.5 L Liver Function 06/09/16 Range/Units 04:42 Total Bilirubin 0.7 (0.2-1.2) mg/dL AST 14 (5-34) Units/L ALT 18 (0-55) Units/L Alkaline Phosphatase 94 (38-126) Units/L Albumin 2.8 L (3.5-5.0) g/dL - ABG Interpretation ABG results: PT/INR, D-dimer PT 15.6 Seconds (9.4-12.1) H 06/09/16 04:42 - Impressions Impressions Abdomen/Pelvis CT 06/09/16 12:00 IMPRESSION: 1. Similar appearance of complex fluid collection within the pelvis with surrounding inflammatory changes compatible with abscess. Changes of the terminal ileum are again suggestive of Crohn's disease. There is no evidence for gas within the pelvic fluid collection at this time. Additionally, oral contrast is present within the bowel lumen with no evidence for contrast extravasation and no evidence for contrast within the complex pelvic fluid collection. It is important to note that the contrast is not yet identified distal to the proximal colon with no contrast present within the sigmoid colon adjacent to the complex fluid collection which somewhat limits evaluation for a fistulous connection between the distal sigmoid colon and pelvic abscess. The absence of gas within a pelvic fluid collection would argue against definite fistula. D/ / Pawel Stewart MD / Pawel Stewart MD Interpreting Provider: Pawel Stewart MD Consult Discharge Plan - Plan Referrals: NO,PCP [Primary Care Provider] -
[2016-06-10] MEDS: MetroNIDAZOLE 500 MG/100 ML 500 MG/100 ML BAG IVPB SCH ×4 (00:45→23:42)
[2016-06-10] MEDS: *HR* Heparin 5,000 UNIT/ML VIAL SQ SCH ×2 (06:40→18:17)
[2016-06-10] MEDS: 0.9 % Sodium Chloride 1,000 ML IVC SCH (06:42)
[2016-06-10] MEDS: *HR* HYDROcodone/Acet 5/325 mg TABLET PO PRN ×3 (06:49→21:35)
[2016-06-10] MEDS: Mesalamine 250 MG CAPSULE.ER PO SCH ×4 (08:37→21:27)
[2016-06-10 08:40] LABS: Basophils % 0.4 %; Eosinophils # 0.1 K/mcL (0.0-0.6); Eosinophils % 1.3 %; Hematocrit 34.1 % (37.5-50.1); Hemoglobin 11.5 g/dL (12.9-16.9); Immature Granulocytes % 0.4 % (0-4); Lymphocytes # 1.3 K/mcL (0.6-4.6); Lymphocytes % 17.1 %; Mean Corpuscular HGB Conc 33.7 g/dL (31.6-35.5); Mean Corpuscular Hemoglobin 30.8 pg (28.0-33.3); Mean Corpuscular Volume 91.4 fL (83.0-100.0); Mean Platelet Volume 9.9 fL (9.4-12.4); Monocytes # 0.5 K/mcL (0.0-1.3); Monocytes % 6.6 %; Neutrophils # 5.7 K/mcL (1.6-8.9); Platelet Count 290 K/mcL (140-400); Red Blood Count 3.73 M/mcL (4.19-5.50); Red Cell Distribution Width 12.3 % (11.5-14.5); Segmented Neutrophils % 74.2 %
[2016-06-10 08:49] LABS: BUN/Creatinine Ratio 6 (6-26); Calcium 8.3 mg/dL (8.6-10.8); Carbon Dioxide 21 mEq/L (19-29); Chloride 108 mEq/L (98-109); Glucose 101 mg/dL (70-99); Osmolality,Calculated 283 (280-300); Potassium 3.4 mEq/L (3.5-4.5); Sodium 138 mEq/L (136-145); eGFR For African Americans > 60 (> 60); eGFR For Non-African Americans > 60 (> 60)
[2016-06-10 08:51] LABS: Blood Urea Nitrogen 4 mg/dL (8-26)
[2016-06-10] MEDS ORDERED: *HR* Dextrose 50 % in Water (Syg) 50 ML SYRINGE IVP ONE ×2 (12:01→12:05)
--- NOTE | 2016-06-10 14:18 | Pre-Sedation Evaluation ---
Pre-sedation evaluation - Pre-sedation checklist Date of procedure: 06/10/16 Procedure: I&D Recent Vitals: Last Vital Signs Temp 97.5 F L 06/10/16 11:36 Pulse 62 06/10/16 11:36 Resp 14 06/10/16 11:36 BP 119/74 06/10/16 11:36 Pulse Ox 99 06/10/16 11:36 H&P (including ROS) documented in medical record: Yes Previous reaction to sedatives/anesthetics: No Dietary Status: NPO after Midnight Airway Assessment: Patient can open mouth completely, TMJ function normal, Micrognathia (under-bite, receding chin) absent, Neck with adequate range of motion Possible difficult airway: No ASA Classification *see protocol: CLASS II-Mild systemic disease Plan of Care: Pt appropriate candidate for procedure/moderate/conscious sedation , Risks/benefits of procedure/sedation discussed w/ patient/family
[2016-06-10] MEDS ORDERED: *HR* Midazolam HCl 2 MG/2 ML VIAL ONE (14:27)
[2016-06-10] MEDS ORDERED: *HR* FentaNYL (PF) 100 MCG/2 ML VIAL ONE (14:28)
[2016-06-10] MEDS: *HR* Midazolam HCl 2 MG/2 ML VIAL IV PRN ×2 (14:33→14:38)
[2016-06-10] MEDS: *HR* FentaNYL (PF) 100 MCG/2 ML VIAL IV PRN ×2 (14:33→14:38)
--- NOTE | 2016-06-10 15:09 | IR Procedure Note ---
Date of procedure: 06/10/16 Consent Obtained: Written consent Timeout: Correct patient and procedure verified, Correct site verified, Time out performed, Skin prep completed Indications: pelvic abscess Procedure Performed: ct guided drain Site/Technique: pelvis, 12F drain Results/Findings: 30cc pus sent for labs Estimated blood loss (cc): 0 Complications: None; Tolerated procedure well Post Procedure Treatment Plan: suction bulb
--- NOTE | 2016-06-10 16:43 | General Surgery Progress Note ---
Date of Encounter: 06/10/16 Time of Encounter: 16:30 - Assessment and Plan (1) Abdominal abscess Current Visit: Yes Status: Acute GI consultation for suspected Crohn's disease s/p IR drainage of abscess Cultures pending May advance to full liquids IV antibiotics- Cipro and Flagyl Supportive care/pain control No urgent surgical intervention indicated at this time Surger will sign off. Thank you for allowing us to participate in the care of this patient. Please call with any further questions/concerns. (2) Suprapubic abdominal pain Current Visit: Yes Status: Acute Supportive care/pain control Serial abdominal exams IR drainage of abscess 06/10/16 IV antibiotics- Cipro and Flagyl (3) DVT prophylaxis Current Visit: Yes Status: Acute Heparin 5,000 units SQ twice daily for DVT prophylaxis Subjective Patient reports: feels better, still having pain (s/p drain placement), tolerating liquids well, voiding w/o difficulty, flatus, bowel movement, afebrile Objective Vital Signs - Last 8 Hours Temp Pulse Resp BP Pulse Ox 06/10/16 15:30 66 18 109/70 100 06/10/16 15:02 97.7 F 68 14 123/70 100 06/10/16 14:40 79 18 133/80 99 06/10/16 11:36 97.5 F L 62 14 119/74 99 Intake and Output 06/10/16 06/10/16 06/10/16 07:59 15:59 23:59 Intake Total 1100 / 1100 0 / 0 Balance 1100 / 1100 0 / 0 Intake: IV Fluids 1100 / 1100 0.9 % Sodium Chloride 1, 1000 / 1000 000 ML @ 100 mls/hr IVC . Q10H [facility] Rx#:[id number] Flagyl 500 MG/100 ML 500 100 / 100 mg In 100 ml @ 100 mls/hr IVPB Q8HR [facility] Rx#: [id number] Oral 0 / 0 Other: Meal NPO LUNCH Percent of Meal Consumed 0% Stool Size Small Stool Consistency loose Stool Characteristics Seedy Stool Color Green # Bowel Movements 1 Blood Glucose* 72 65 - General physical appearance well developed, well nourished, no distress, moderate pain - Eyes normal ocular movement - ENT normal mucosa, atraumatic, normocephalic - Neck Neck exam: trachea midline - Respiratory normal respiratory effort, clear to auscultation - Cardiovascular Cardiovascular exam: Present: RRR - Abdomen Abdomen: Present: bowel sounds present, soft, tender, wound (Pigtail drain with serousang. drainage noted (30ml of pus drained in IR)) Abdominal Tenderness: suprapubic (s/p drain placement) - Integumentary no rash, no growths - Neurologic CN 2-12 grossly intact - Psychiatric oriented to time, oriented to person, oriented to place, speech is normal, memory intact - Labs 06/10/16 08:03 06/10/16 08:03 Diabetes panel 06/10/16 Range/Units 08:03 Sodium 138 (136-145) mEq/L Potassium 3.4 L (3.5-4.5) mEq/L Chloride 108 (98-109) mEq/L Carbon Dioxide 21 (19-29) mEq/L BUN 4 L (8-26) mg/dL Creatinine 0.71 L (0.72-1.25) mg/dL Glucose 101 H (70-99) mg/dL Calcium 8.3 L (8.6-10.8) mg/dL Calcium panel 06/10/16 Range/Units 08:03 Calcium 8.3 L (8.6-10.8) mg/dL Pituitary panel 06/10/16 Range/Units 08:03 Sodium 138 (136-145) mEq/L Potassium 3.4 L (3.5-4.5) mEq/L Chloride 108 (98-109) mEq/L Carbon Dioxide 21 (19-29) mEq/L BUN 4 L (8-26) mg/dL Creatinine 0.71 L (0.72-1.25) mg/dL Glucose 101 H (70-99) mg/dL Calcium 8.3 L (8.6-10.8) mg/dL Adrenal panel 06/10/16 Range/Units 08:03 Sodium 138 (136-145) mEq/L Potassium 3.4 L (3.5-4.5) mEq/L Chloride 108 (98-109) mEq/L Carbon Dioxide 21 (19-29) mEq/L BUN 4 L (8-26) mg/dL Creatinine 0.71 L (0.72-1.25) mg/dL Glucose 101 H (70-99) mg/dL Calcium 8.3 L (8.6-10.8) mg/dL Consult Discharge Plan - Plan Referrals: NO,PCP [Primary Care Provider] -
--- NOTE | 2016-06-10 18:41 | Internal Med Progress Note ---
Date of Encounter: 06/10/16 Time of Encounter: 18:38 - Assessment and plan (1) Abdominal abscess Current Visit: Yes Status: Acute (2) Suprapubic abdominal pain Current Visit: Yes Status: Acute (3) History of hepatitis Current Visit: Yes Status: Acute (4) DVT prophylaxis Current Visit: Yes Status: Acute Assessment and plan: 35 y/o male with pmh of admitted with intermittent achy abdominal pain and loose mucous covered stools. CT abdomen/pelvis showing mild wall thickening and submucosal fatty deposition in the terminal ileum with an adjacent complex fluid collection suspicious for an abscess. There is secondary inflammation noted around the appendix and sigmoid colon. Finding are suggestive of Crohn's disease with contained perforation. No known hx of Crohns per pt. # Abdominal Pain: Likely crohns disease with perforation as above. Pt denies any past h/o crohns or ulcerative colitis. IR guided drainage of the abscess done today. c/s sent. Patient # Abdominal abscess: As above. On broad spectrum abx coverage. On mesalamine. ESR/CRP/ANCA-Ab, Saccharomyces cerv pending. GI following. CT abdomen with contrast done yesterday negative for any evidence of fistula, however poor visualization of lower areas per report. On low dose steroids. # h/o hepatitis per hx: Panel pending # DVT Prophylaxis: Sub Q heparin - Time Spent With Patient 25 - 35 minutes - Subjective Interval history: seen and examined at bedside.Reports improvement in abdominal pain. He had IR guided drainage of the abscess today. Complains of mild abdominal pain and mucus mixed stools. Denies any other complaints. - Constitutional Vitals: Temp Pulse Resp BP Pulse Ox 97.7 F 66 18 109/70 100 06/10/16 15:02 06/10/16 15:30 06/10/16 15:30 06/10/16 15:30 06/10/16 15:30 General appearance: Present: cooperative, A&O X 3, pleasant. Absent: no acute distress - Head Head exam: Present: atraumatic, normocephalic - Eye Eye exam: Present: PERRL, conjuntiva pink, sclera anicteric Pupils: Present: PERRL - Neck Neck exam general surgery: Present: supple, trachea midline. Absent: lymphadenopathy - Respiratory Respiratory exam: Present: CTAB. Absent: accessory muscle use, rales, rhonchi, wheezes - Cardiovascular Cardiovascular exam: Present: RRR, +S1, +S2. Absent: diastolic murmur, gallop, rubs, systolic murmur - GI/Abdominal GI/Abdominal exam: Present: normal bowel sounds, soft, tenderness, no peritoneal signs. Absent: distended - Extremities Exam Extremities exam: Present: warm, radial pulses palpable and symetrical. Absent : calf tenderness, cyanotic, pedal edema - Neurological Exam Neurological exam: Present: CN II-XII intact, oriented X3, no focal deficits. Absent: pronater drift, facial droop, speech deficit - Skin Skin exam: Present: dry, intact Internal Medicine: Result - Labs CBC & Chem 7: 06/10/16 08:03 06/10/16 08:03 Labs: Short CBC 06/10/16 Range/Units 08:03 WBC 7.7 (4.3-11.1) K/mcL Hgb 11.5 L (12.9-16.9) g/dL Hct 34.1 L (37.5-50.1) % Plt Count 290 (140-400) K/mcL Neutrophils # 5.7 (1.6-8.9) K/mcL BMP 06/10/16 08:03 Sodium 138 Potassium 3.4 L Chloride 108 Carbon Dioxide 21 BUN 4 L Creatinine 0.71 L Glucose 101 H Calcium 8.3 L - ABG Interpretation ABG results: PT/INR, D-dimer PT 15.6 Seconds (9.4-12.1) H 06/09/16 04:42 - Impressions Impressions Retroperitoneal Abscess Drainage 06/10/16 00:00 IMPRESSION: Successful CT guided placement of a pelvic abscess drainage catheter. D/ / 06/10/2016 15:30:26 Chikis Chan MD / ira Interpreting Provider: Chikis Chan MD Consult Discharge Plan - Plan Referrals: NO,PCP [Primary Care Provider] -
[2016-06-11] MEDS: 0.9 % Sodium Chloride 1,000 ML IVC SCH ×2 (01:59→18:19)
[2016-06-11] MEDS: *HR* HYDROcodone/Acet 5/325 mg TABLET PO PRN ×3 (02:01→23:23)
[2016-06-11 04:21] LABS: Basophils % 0.4 %; Eosinophils # 0.1 K/mcL (0.0-0.6); Hematocrit 36.4 % (37.5-50.1); Immature Granulocytes % 0.4 % (0-4); Lymphocytes # 1.3 K/mcL (0.6-4.6); Mean Corpuscular Hemoglobin 30.7 pg (28.0-33.3); Mean Corpuscular Volume 93.1 fL (83.0-100.0); Mean Platelet Volume 9.9 fL (9.4-12.4); Monocytes # 0.4 K/mcL (0.0-1.3); Monocytes % 7.7 %; Neutrophils # 3.8 K/mcL (1.6-8.9); Platelet Count 293 K/mcL (140-400); Red Blood Count 3.91 M/mcL (4.19-5.50); Red Cell Distribution Width 12.5 % (11.5-14.5); Segmented Neutrophils % 66.5 %
[2016-06-11 04:43] LABS: BUN/Creatinine Ratio 6 (6-26); Calcium 8.6 mg/dL (8.6-10.8); Carbon Dioxide 19 mEq/L (19-29); Chloride 110 mEq/L (98-109); Glucose 73 mg/dL (70-99); Osmolality,Calculated 287 (280-300); Potassium 4.2 mEq/L (3.5-4.5); Sodium 141 mEq/L (136-145); eGFR For African Americans > 60 (> 60); eGFR For Non-African Americans > 60 (> 60)
[2016-06-11 04:53] LABS: Blood Urea Nitrogen 4 mg/dL (8-26)
[2016-06-11] MEDS: *HR* Heparin 5,000 UNIT/ML VIAL SQ SCH ×2 (05:17→23:03)
[2016-06-11] MEDS ORDERED: 0.9 % Sodium Chloride 1,000 ML ONE (05:43)
[2016-06-11 08:16] LABS: Myeloperoxidase Ab 7 AU/mL (0-19); Serine Protease-3 Antibody 681 AU/mL (0-19)
[2016-06-11] MEDS: Mesalamine 250 MG CAPSULE.ER PO SCH ×4 (08:34→23:03)
[2016-06-11] MEDS: MetroNIDAZOLE 500 MG/100 ML 500 MG/100 ML BAG IVPB SCH ×3 (08:35→23:02)
--- NOTE | 2016-06-11 12:41 | Gastroenterology Progress Note ---
<Samuel Azevedo Mayra - Last Filed: 06/11/16 12:38> Date of Encounter: 06/11/16 Time of Encounter: 11:10 - Assessment and plan (1) Abdominal abscess Current Visit: Yes Status: Acute Assessment and plan: S/p drain placement. Pain improved. Continue Cipro and Flagyl. (2) Suprapubic abdominal pain Current Visit: Yes Status: Acute (3) History of hepatitis Current Visit: Yes Status: Acute Assessment and plan: History of hepatitis B/C. (4) Crohn's disease Current Visit: Yes Status: Acute Assessment and plan: CT concerning for Crohn's. Pt to follow up with Dr. Jacobs as outpatient for possible Crohn's disease in 3 weeks. Qualifiers: Gastrointestinal tract location: unspecified location Digestive disease complication type: unspecified complication Qualified Code(s): K50.919 - Crohn 's disease, unspecified, with unspecified complications - Time Spent With Patient Total time spent is greater than 50% in coordination of care (as documented) at patient's floor/unit and/or counseling patient: - Subjective Interval history: Pt resting in bed, and states his abdominal pain has improved. No other complaints. - Constitutional Vitals: Temp Pulse Resp BP Pulse Ox 97.8 F 53 15 117/73 100 06/11/16 11:43 06/11/16 11:43 06/11/16 11:43 06/11/16 11:43 06/11/16 11:43 General appearance: Present: cooperative, A&O X 3, no acute distress, answers questions appropriately - Head Head exam: Present: atraumatic, normocephalic - Eye Eye exam: Present: normal appearance, sclera anicteric - ENT ENT exam: Present: mucous membranes moist - Neck Neck exam general surgery: Present: normal inspection, trachea midline - Respiratory Respiratory exam: Present: CTAB. Absent: rales, rhonchi - Cardiovascular Cardiovascular exam: Present: RRR, +S1, +S2 - GI/Abdominal GI/Abdominal exam: Present: soft, tenderness (suprapubic), no peritoneal signs. Absent: distended, firm, guarding Additional comments: EMILY drain with serosang drainage noted. - Rectal Rectal exam: Present: deferred - Extremities Exam Extremities exam: Present: warm - Neurological Exam Neurological exam: Present: no focal deficits - Psychiatric Psychiatric exam: Present: normal affect, normal mood - Skin Skin exam: Present: dry, intact, normal color, warm Results - Labs CBC & Chem 7: 06/11/16 03:39 06/11/16 03:39 Labs: Last Result ESR 71 mm/hr (0-10) H 06/08/16 16:29 Calcium 8.6 mg/dL (8.6-10.8) 06/11/16 03:39 C-Reactive Protein 111 mg/L (Less than 5) H 06/08/16 16:29 Entire Visit Hgb 12.0 g/dL (12.9-16.9) L 06/11/16 03:39 Hct 36.4 % (37.5-50.1) L 06/11/16 03:39 PT 15.6 Seconds (9.4-12.1) H 06/09/16 04:42 Total Bilirubin 0.7 mg/dL (0.2-1.2) 06/09/16 04:42 AST 14 Units/L (5-34) 06/09/16 04:42 ALT 18 Units/L (0-55) 06/09/16 04:42 Amylase 35 Units/L (25-125) 06/08/16 12:25 Lipase 11 Units/L (8-78) 06/08/16 12:25 - ABG ABG results: PT/INR, D-dimer PT 15.6 Seconds (9.4-12.1) H 06/09/16 04:42 - Impressions Impressions Retroperitoneal Abscess Drainage 06/10/16 00:00 IMPRESSION: Successful CT guided placement of a pelvic abscess drainage catheter. D/ / 06/10/2016 15:30:26 Chikis Chan MD / ira Interpreting Provider: Chikis Chan MD Consult Discharge Plan - Plan Referrals: NO,PCP [Primary Care Provider] - <Oly Jacobs - Last Filed: 06/11/16 17:53> Time of Encounter: 13:00 - Time Spent With Patient Total time spent is greater than 50% in coordination of care (as documented) at patient's floor/unit and/or counseling patient: - Constitutional Vitals: Temp Pulse Resp BP Pulse Ox 97.9 F 70 14 123/69 98 06/11/16 15:38 06/11/16 15:38 06/11/16 15:38 06/11/16 15:38 06/11/16 15:38 Results - Labs CBC & Chem 7: 06/11/16 03:39 06/11/16 03:39 Labs: Last Result ESR 71 mm/hr (0-10) H 06/08/16 16:29 Calcium 8.6 mg/dL (8.6-10.8) 06/11/16 03:39 C-Reactive Protein 111 mg/L (Less than 5) H 06/08/16 16:29 Entire Visit Hgb 12.0 g/dL (12.9-16.9) L 06/11/16 03:39 Hct 36.4 % (37.5-50.1) L 06/11/16 03:39 PT 15.6 Seconds (9.4-12.1) H 06/09/16 04:42 Total Bilirubin 0.7 mg/dL (0.2-1.2) 06/09/16 04:42 AST 14 Units/L (5-34) 06/09/16 04:42 ALT 18 Units/L (0-55) 06/09/16 04:42 Amylase 35 Units/L (25-125) 06/08/16 12:25 Lipase 11 Units/L (8-78) 06/08/16 12:25 S.cerevisiae IgG Ab 4.6 Units (0.0-24.9) 06/08/16 16:29 S.cerevisiae IgA Ab 15.6 Units (0.0-24.9) 06/08/16 16:29 - ABG ABG results: PT/INR, D-dimer PT 15.6 Seconds (9.4-12.1) H 06/09/16 04:42 - Impressions Impressions Retroperitoneal Abscess Drainage 06/10/16 00:00 IMPRESSION: Successful CT guided placement of a pelvic abscess drainage catheter. D/ / 06/10/2016 15:30:26 Chikis Chan MD / ira Interpreting Provider: Chikis Chan MD - Attending Attestation I examined this patient and my medical decision-making was reviewed with the DEAN OF ADMISSIONS/PA/Advanced Practice Nurse/Resident Physician. I agree with the documented findings, disposition and treatment plan as described except to the extent set forth below. Will need f/u with GI as out pt for his Crohn management
[2016-06-11 15:02] LABS: Saccharomyces cerevisiae IgA 15.6 Units (0.0-24.9)
--- NOTE | 2016-06-11 18:48 | Internal Med Progress Note ---
Date of Encounter: 06/12/16 Time of Encounter: 18:03 - Assessment and plan (1) Abdominal abscess Current Visit: Yes Status: Acute (2) Suprapubic abdominal pain Current Visit: Yes Status: Acute (3) History of hepatitis Current Visit: Yes Status: Acute (4) DVT prophylaxis Current Visit: Yes Status: Acute Assessment and plan: 35 y/o male with pmh of admitted with intermittent achy abdominal pain and loose mucous covered stools. CT abdomen/pelvis showing mild wall thickening and submucosal fatty deposition in the terminal ileum with an adjacent complex fluid collection suspicious for an abscess. There is secondary inflammation noted around the appendix and sigmoid colon. Finding are suggestive of Crohn's disease with contained perforation. No known hx of Crohns per pt. # Abdominal Pain: Likely crohns disease with perforation as above. Pt denies any past h/o crohns or ulcerative colitis. IR guided drainage of the abscess done 06/10. c/s sent positive for GNR, final sensitivities pending. # Abdominal abscess: As above. On broad spectrum abx coverage. On mesalamine. CT abdomen with contrast done negative for any evidence of fistula, however poor visualization of lower areas per report. On low dose steroids. To follow with GI as outpatient once acute issues resolves for colonoscopy and biopsy. # h/o hepatitis per hx: Hep C positive. Will need outpt f/u. # DVT Prophylaxis: Sub Q heparin - Time Spent With Patient 25 - 35 minutes - Subjective Interval history: seen and examined at bedside.Reports improvement in abdominal pain. He had IR guided drainage of the abscess today. Complains of mild abdominal pain and mucus mixed stools. Denies any other complaints. - Constitutional Vitals: Temp Pulse Resp BP Pulse Ox 97.9 F 70 14 123/69 98 06/11/16 15:38 06/11/16 15:38 06/11/16 15:38 06/11/16 15:38 06/11/16 15:38 General appearance: Present: cooperative, A&O X 3, pleasant. Absent: no acute distress Internal Medicine: Result - Labs CBC & Chem 7: 06/11/16 03:39 06/11/16 03:39 Labs: Short CBC 06/11/16 Range/Units 03:39 WBC 5.6 (4.3-11.1) K/mcL Hgb 12.0 L (12.9-16.9) g/dL Hct 36.4 L (37.5-50.1) % Plt Count 293 (140-400) K/mcL Neutrophils # 3.8 (1.6-8.9) K/mcL BMP 06/11/16 03:39 Sodium 141 Potassium 4.2 Chloride 110 H Carbon Dioxide 19 BUN 4 L Creatinine 0.71 L Glucose 73 Calcium 8.6 - ABG Interpretation ABG results: PT/INR, D-dimer PT 15.6 Seconds (9.4-12.1) H 06/09/16 04:42 - Impressions Impressions Retroperitoneal Abscess Drainage 06/10/16 00:00 IMPRESSION: Successful CT guided placement of a pelvic abscess drainage catheter. D/ / 06/10/2016 15:30:26 Chikis Chan MD / [email or web address] Interpreting Provider: Chikis Chan MD Consult Discharge Plan - Plan Referrals: NO,PCP [Primary Care Provider] -
[2016-06-12] MEDS: *HR* Heparin 5,000 UNIT/ML VIAL SQ SCH ×2 (05:29→18:33)
[2016-06-12] MEDS: *HR* HYDROcodone/Acet 5/325 mg TABLET PO PRN ×2 (05:48→13:48)
[2016-06-12] MEDS: 0.9 % Sodium Chloride 1,000 ML IVC SCH ×3 (09:56→23:12)
[2016-06-12] MEDS: MetroNIDAZOLE 500 MG/100 ML 500 MG/100 ML BAG IVPB SCH ×3 (09:57→23:09)
[2016-06-12] MEDS: Mesalamine 250 MG CAPSULE.ER PO SCH ×3 (13:47→20:29)
--- NOTE | 2016-06-12 18:06 | Internal Med Progress Note ---
Date of Encounter: 06/12/16 Time of Encounter: 18:05 - Assessment and plan (1) Abdominal abscess Current Visit: Yes Status: Acute (2) Suprapubic abdominal pain Current Visit: Yes Status: Acute (3) History of hepatitis Current Visit: Yes Status: Acute (4) DVT prophylaxis Current Visit: Yes Status: Acute Assessment and plan: 35 y/o male with pmh of admitted with intermittent achy abdominal pain and loose mucous covered stools. CT abdomen/pelvis showing mild wall thickening and submucosal fatty deposition in the terminal ileum with an adjacent complex fluid collection suspicious for an abscess. There is secondary inflammation noted around the appendix and sigmoid colon. Finding are suggestive of Crohn's disease with contained perforation. No known hx of Crohns per pt. # Abdominal Pain: Likely crohns disease with perforation as above. Pt denies any past h/o crohns or ulcerative colitis. IR guided drainage of the abscess done 06/10. c/s sent positive for GNR, final sensitivities pending. # Abdominal abscess: As above. On broad spectrum abx coverage. On mesalamine. CT abdomen with contrast done negative for any evidence of fistula, however poor visualization of lower areas per report. On low dose steroids. To follow with GI as outpatient once acute issues resolves for colonoscopy and biopsy. # h/o hepatitis per hx: Hep C positive. Will need outpt f/u. # DVT Prophylaxis: Sub Q heparin - Time Spent With Patient 25 - 35 minutes - Subjective Interval history: seen and examined at bedside.Reports improvement in abdominal pain. He had IR guided drainage of the abscess today. Complains of mild abdominal pain and mucus mixed stools. Denies any other complaints. - Constitutional Vitals: Temp Pulse Resp BP Pulse Ox 97.4 F L 55 15 111/71 96 06/12/16 15:36 06/12/16 15:36 06/12/16 15:36 06/12/16 15:36 06/12/16 15:36 General appearance: Present: cooperative, A&O X 3, pleasant. Absent: no acute distress - Head Head exam: Present: atraumatic, normocephalic - Eye Eye exam: Present: PERRL, conjuntiva pink, sclera anicteric Pupils: Present: PERRL - Neck Neck exam general surgery: Present: supple, trachea midline. Absent: lymphadenopathy - Respiratory Respiratory exam: Present: CTAB. Absent: accessory muscle use, rales, rhonchi, wheezes - Cardiovascular Cardiovascular exam: Present: RRR, +S1, +S2. Absent: diastolic murmur, gallop, rubs, systolic murmur - GI/Abdominal GI/Abdominal exam: Present: normal bowel sounds, soft, no peritoneal signs ( drain in place with minimal discharge ). Absent: distended, tenderness - Extremities Exam Extremities exam: Present: warm, radial pulses palpable and symetrical. Absent : calf tenderness, cyanotic, pedal edema - Neurological Exam Neurological exam: Present: CN II-XII intact, oriented X3, no focal deficits. Absent: pronater drift, facial droop, speech deficit - Skin Skin exam: Present: dry, intact Internal Medicine: Result - Labs CBC & Chem 7: 06/11/16 03:39 06/11/16 03:39 - ABG Interpretation ABG results: PT/INR, D-dimer PT 15.6 Seconds (9.4-12.1) H 06/09/16 04:42 - Impressions Impressions Retroperitoneal Abscess Drainage 06/10/16 00:00 IMPRESSION: Successful CT guided placement of a pelvic abscess drainage catheter. D/ / 06/10/2016 15:30:26 Chikis Chan MD / [facility] Interpreting Provider: Chikis Chan MD Consult Discharge Plan - Plan Referrals: NO,PCP [Primary Care Provider] -
[2016-06-13 03:56] LABS: Basophils % 0.7 %; Eosinophils # 0.1 K/mcL (0.0-0.6); Eosinophils % 2.8 %; Hematocrit 37.8 % (37.5-50.1); Hemoglobin 12.9 g/dL (12.9-16.9); Immature Granulocytes % 0.5 % (0-4); Lymphocytes # 1.6 K/mcL (0.6-4.6); Lymphocytes % 36.5 %; Mean Corpuscular HGB Conc 34.1 g/dL (31.6-35.5); Mean Corpuscular Hemoglobin 31.2 pg (28.0-33.3); Mean Corpuscular Volume 91.5 fL (83.0-100.0); Monocytes # 0.4 K/mcL (0.0-1.3); Monocytes % 8.3 %; Neutrophils # 2.2 K/mcL (1.6-8.9); Platelet Count 336 K/mcL (140-400); Red Blood Count 4.13 M/mcL (4.19-5.50); Red Cell Distribution Width 12.5 % (11.5-14.5); Segmented Neutrophils % 51.2 %
[2016-06-13 04:09] LABS: BUN/Creatinine Ratio 7 (6-26); Calcium 9.2 mg/dL (8.6-10.8); Carbon Dioxide 21 mEq/L (19-29); Chloride 110 mEq/L (98-109); Glucose 89 mg/dL (70-99); Osmolality,Calculated 289 (280-300); Potassium 4.2 mEq/L (3.5-4.5); Sodium 141 mEq/L (136-145); eGFR For African Americans > 60 (> 60); eGFR For Non-African Americans > 60 (> 60)
[2016-06-13 04:11] LABS: Blood Urea Nitrogen 5 mg/dL (8-26)
[2016-06-13] MEDS: *HR* Heparin 5,000 UNIT/ML VIAL SQ SCH ×2 (06:07→17:07)
[2016-06-13] MEDS: Mesalamine 250 MG CAPSULE.ER PO SCH ×4 (08:18→19:59)
[2016-06-13] MEDS: *HR* HYDROcodone/Acet 5/325 mg TABLET PO PRN ×5 (08:19→17:05)
[2016-06-13] MEDS: MetroNIDAZOLE 500 MG/100 ML 500 MG/100 ML BAG IVPB SCH ×2 (08:19→15:57)
[2016-06-13] MEDS: 0.9 % Sodium Chloride 1,000 ML IVC SCH (09:34)
--- NOTE | 2016-06-13 17:27 | Internal Med Progress Note ---
Date of Encounter: 06/13/16 Time of Encounter: 17:25 - Assessment and plan (1) Abdominal abscess Current Visit: Yes Status: Acute (2) Suprapubic abdominal pain Current Visit: Yes Status: Acute (3) History of hepatitis Current Visit: Yes Status: Acute (4) DVT prophylaxis Current Visit: Yes Status: Acute Assessment and plan: 35 y/o male with pmh of admitted with intermittent achy abdominal pain and loose mucous covered stools. CT abdomen/pelvis showing mild wall thickening and submucosal fatty deposition in the terminal ileum with an adjacent complex fluid collection suspicious for an abscess. There is secondary inflammation noted around the appendix and sigmoid colon. Finding are suggestive of Crohn's disease with contained perforation. No known hx of Crohns per pt. # Abdominal Pain: Likely crohns disease with perforation as above. Pt denies any past h/o crohns or ulcerative colitis. IR guided drainage of the abscess done 06/10. c/s sent positive for e.coli. On cefepime based on sensitivities. Will ask ID to assist with duration and choice of antibiotics on d/c # Abdominal abscess: As above. On broad spectrum abx coverage. On mesalamine. CT abdomen with contrast done negative for any evidence of fistula, however poor visualization of lower areas per report. On low dose steroids. To follow with GI as outpatient once acute issues resolves for colonoscopy and biopsy. # h/o hepatitis per hx: Hep C positive. Will need outpt f/u. # DVT Prophylaxis: Sub Q heparin - Time Spent With Patient 25 - 35 minutes - Subjective Interval history: seen and examined at bedside.Reports improvement in abdominal pain. Abdominal pain better. EMILY drain less than 10 cc - Constitutional Vitals: Temp Pulse Resp BP Pulse Ox 98.0 F 49 16 122/71 99 06/13/16 15:37 06/13/16 15:37 06/13/16 15:37 06/13/16 15:37 06/13/16 15:37 General appearance: Present: cooperative, A&O X 3, pleasant. Absent: no acute distress - Head Head exam: Present: atraumatic, normocephalic - Eye Eye exam: Present: PERRL, conjuntiva pink, sclera anicteric Pupils: Present: PERRL - Neck Neck exam general surgery: Present: supple, trachea midline. Absent: lymphadenopathy - Respiratory Respiratory exam: Present: CTAB. Absent: accessory muscle use, rales, rhonchi, wheezes - Cardiovascular Cardiovascular exam: Present: RRR, +S1, +S2. Absent: diastolic murmur, gallop, rubs, systolic murmur - GI/Abdominal GI/Abdominal exam: Present: normal bowel sounds, soft, no peritoneal signs (EMILY drain inplace. about 2-3 cc discharge ). Absent: distended, tenderness - Extremities Exam Extremities exam: Present: warm, radial pulses palpable and symetrical. Absent : calf tenderness, cyanotic, pedal edema - Neurological Exam Neurological exam: Present: CN II-XII intact, oriented X3, no focal deficits. Absent: pronater drift, facial droop, speech deficit - Skin Skin exam: Present: dry, intact Internal Medicine: Result - Labs CBC & Chem 7: 06/13/16 03:16 06/13/16 03:16 Labs: Short CBC 06/13/16 Range/Units 03:16 WBC 4.4 (4.3-11.1) K/mcL Hgb 12.9 (12.9-16.9) g/dL Hct 37.8 (37.5-50.1) % Plt Count 336 (140-400) K/mcL Neutrophils # 2.2 (1.6-8.9) K/mcL BMP 06/13/16 03:16 Sodium 141 Potassium 4.2 Chloride 110 H Carbon Dioxide 21 BUN 5 L Creatinine 0.71 L Glucose 89 Calcium 9.2 - ABG Interpretation ABG results: PT/INR, D-dimer PT 15.6 Seconds (9.4-12.1) H 06/09/16 04:42 Consult Discharge Plan - Plan Referrals: NO,PCP [Primary Care Provider] -
[2016-06-13] MEDS: Cefepime HCl 1,000 MG in D5% in Water (Mini-Bag+) 100 ML IVPB SCH (18:17)
[2016-06-14 04:49] LABS: Basophils % 0.8 %; Eosinophils # 0.1 K/mcL (0.0-0.6); Eosinophils % 2.6 %; Hematocrit 38.4 % (37.5-50.1); Immature Granulocytes % 0.3 % (0-4); Lymphocytes # 1.5 K/mcL (0.6-4.6); Lymphocytes % 38.9 %; Mean Corpuscular HGB Conc 33.9 g/dL (31.6-35.5); Mean Corpuscular Hemoglobin 30.7 pg (28.0-33.3); Mean Corpuscular Volume 90.8 fL (83.0-100.0); Monocytes # 0.3 K/mcL (0.0-1.3); Monocytes % 7.7 %; Neutrophils # 1.9 K/mcL (1.6-8.9); Platelet Count 337 K/mcL (140-400); Red Blood Count 4.23 M/mcL (4.19-5.50); Red Cell Distribution Width 12.6 % (11.5-14.5); Segmented Neutrophils % 49.7 %
[2016-06-14 05:08] LABS: BUN/Creatinine Ratio 5 (6-26); Calcium 9.4 mg/dL (8.6-10.8); Carbon Dioxide 24 mEq/L (19-29); Chloride 108 mEq/L (98-109); Glucose 98 mg/dL (70-99); Osmolality,Calculated 291 (280-300); Potassium 3.7 mEq/L (3.5-4.5); Sodium 142 mEq/L (136-145); eGFR For African Americans > 60 (> 60); eGFR For Non-African Americans > 60 (> 60)
[2016-06-14 05:11] LABS: Blood Urea Nitrogen 4 mg/dL (8-26)
[2016-06-14] MEDS: Cefepime HCl 1,000 MG in D5% in Water (Mini-Bag+) 100 ML IVPB SCH ×2 (05:25→17:57)
[2016-06-14] MEDS: *HR* Heparin 5,000 UNIT/ML VIAL SQ SCH ×2 (05:29→18:02)
[2016-06-14] MEDS: *HR* HYDROcodone/Acet 5/325 mg TABLET PO PRN ×3 (09:10→18:07)
[2016-06-14] MEDS: Mesalamine 250 MG CAPSULE.ER PO SCH ×4 (09:10→20:29)
--- NOTE | 2016-06-14 14:12 | Internal Med Progress Note ---
Date of Encounter: 06/14/16 Time of Encounter: 14:11 - Assessment and plan (1) Abdominal abscess Current Visit: Yes Status: Acute (2) Suprapubic abdominal pain Current Visit: Yes Status: Acute (3) History of hepatitis Current Visit: Yes Status: Acute (4) DVT prophylaxis Current Visit: Yes Status: Acute Assessment and plan: 35 y/o male with pmh of admitted with intermittent achy abdominal pain and loose mucous covered stools. CT abdomen/pelvis showing mild wall thickening and submucosal fatty deposition in the terminal ileum with an adjacent complex fluid collection suspicious for an abscess. There is secondary inflammation noted around the appendix and sigmoid colon. Finding are suggestive of Crohn's disease with contained perforation. No known hx of Crohns per pt. # Abdominal Pain: Likely crohns disease with perforation as above. Pt denies any past h/o crohns or ulcerative colitis. IR guided drainage of the abscess done 06/10. c/s sent positive for e.coli. On cefepime based on sensitivities. Will ask ID to assist with duration and choice of antibiotics on d/c # Abdominal abscess: As above. On broad spectrum abx coverage. On mesalamine. CT abdomen with contrast done negative for any evidence of fistula, however poor visualization of lower areas per report. On low dose steroids. To follow with GI as outpatient once acute issues resolves for colonoscopy and biopsy. Will remove EMILY drain tomorrow if agreeable with GI # h/o hepatitis per hx: Hep C positive. Will need outpt f/u. # DVT Prophylaxis: Sub Q heparin - Time Spent With Patient 25 - 35 minutes - Subjective Interval history: seen and examined at bedside.Reports improvement in abdominal pain. Abdominal pain better. EMILY drain less than 10 cc - Constitutional Vitals: Temp Pulse Resp BP Pulse Ox 98.0 F 66 17 124/81 96 06/14/16 11:05 06/14/16 11:05 06/14/16 11:05 06/14/16 11:05 06/14/16 11:05 General appearance: Present: cooperative, A&O X 3, pleasant. Absent: no acute distress - Head Head exam: Present: atraumatic, normocephalic - Eye Eye exam: Present: PERRL, conjuntiva pink, sclera anicteric Pupils: Present: PERRL - Neck Neck exam general surgery: Present: supple, trachea midline. Absent: lymphadenopathy - Respiratory Respiratory exam: Present: CTAB. Absent: accessory muscle use, rales, rhonchi, wheezes - Cardiovascular Cardiovascular exam: Present: RRR, +S1, +S2. Absent: diastolic murmur, gallop, rubs, systolic murmur - GI/Abdominal GI/Abdominal exam: Present: normal bowel sounds, soft, no peritoneal signs (EMILY drain in place without any significant drainage. ). Absent: distended, tenderness - Extremities Exam Extremities exam: Present: warm, radial pulses palpable and symetrical. Absent : calf tenderness, cyanotic, pedal edema - Neurological Exam Neurological exam: Present: CN II-XII intact, oriented X3, no focal deficits. Absent: pronater drift, facial droop, speech deficit - Skin Skin exam: Present: dry, intact Internal Medicine: Result - Labs CBC & Chem 7: 06/14/16 04:08 06/14/16 04:08 Labs: Short CBC 06/14/16 Range/Units 04:08 WBC 3.8 L (4.3-11.1) K/mcL Hgb 13.0 (12.9-16.9) g/dL Hct 38.4 (37.5-50.1) % Plt Count 337 (140-400) K/mcL Neutrophils # 1.9 (1.6-8.9) K/mcL BMP 06/14/16 04:08 Sodium 142 Potassium 3.7 Chloride 108 Carbon Dioxide 24 BUN 4 L Creatinine 0.76 Glucose 98 Calcium 9.4 - ABG Interpretation ABG results: PT/INR, D-dimer PT 15.6 Seconds (9.4-12.1) H 06/09/16 04:42 Consult Discharge Plan - Plan Referrals: NO,PCP [Primary Care Provider] -
[2016-06-15 04:43] LABS: Basophils # 0.1 K/mcL (0.0-0.2); Basophils % 1.4 %; Eosinophils # 0.2 K/mcL (0.0-0.6); Eosinophils % 4.1 %; Hematocrit 39.8 % (37.5-50.1); Hemoglobin 13.5 g/dL (12.9-16.9); Immature Granulocytes % 0.6 % (0-4); Lymphocytes # 1.5 K/mcL (0.6-4.6); Lymphocytes % 40.3 %; Mean Corpuscular HGB Conc 33.9 g/dL (31.6-35.5); Mean Corpuscular Hemoglobin 30.8 pg (28.0-33.3); Mean Corpuscular Volume 90.7 fL (83.0-100.0); Monocytes # 0.3 K/mcL (0.0-1.3); Monocytes % 9.1 %; Neutrophils # 1.6 K/mcL (1.6-8.9); Platelet Count 343 K/mcL (140-400); Red Blood Count 4.39 M/mcL (4.19-5.50); Red Cell Distribution Width 12.6 % (11.5-14.5); Segmented Neutrophils % 44.5 %
[2016-06-15 04:54] LABS: BUN/Creatinine Ratio 8 (6-26); Blood Urea Nitrogen 6 mg/dL (8-26); Calcium 9.4 mg/dL (8.6-10.8); Carbon Dioxide 25 mEq/L (19-29); Chloride 108 mEq/L (98-109); Glucose 98 mg/dL (70-99); Osmolality,Calculated 292 (280-300); Potassium 4.2 mEq/L (3.5-4.5); Sodium 142 mEq/L (136-145); eGFR For African Americans > 60 (> 60); eGFR For Non-African Americans > 60 (> 60)
[2016-06-15] MEDS: Cefepime HCl 1,000 MG in D5% in Water (Mini-Bag+) 100 ML IVPB SCH ×2 (06:13→17:04)
[2016-06-15] MEDS: *HR* Heparin 5,000 UNIT/ML VIAL SQ SCH ×3 (06:14→17:08)
[2016-06-15] MEDS: Mesalamine 250 MG CAPSULE.ER PO SCH ×4 (08:02→21:32)
--- NOTE | 2016-06-15 14:21 | Infectious Disease Consult ---
Date of Encounter: 06/15/16 Time of Encounter: 14:17 Assessment and Plan (1) Abdominal abscess Status: Acute Assessment and plan: CT of the abdomen and pelvis showed a complex fluid collection in the pelvis measuring 6.4 x 4.4 x 4.1 cm, compatible with an abscess. The collection appeared to be adjacent to the terminal ileum, suggestive of Crohn's disease with contained perforation. Likely secondary to perforation of the terminal ileum secondary to Crohn's disease. Status post CT-guided pigtail drain placement on June 10 by interventional radiology. Approximately 30 mL's of pus was aspirated. Causative organism is Escherichia coli, resistant flouroquinolones. Currently on day 6 of IV antibiotics since drain placement. Continue cefepime 2 g IV every 12 hours (day 6). Would recommend adding anaerobic coverage such as oral Flagyl 500 mg by mouth 3 times a day. Duration of treatment depends on the clinical picture, but given that the source of the patient's infection has been controlled adequately and he has not had any sepsis criteria, would recommend completing a 7 day course of IV antibiotics and then switching to oral Suprax plus Flagyl to complete a 14 day course. Treat through 06/23/16. Monitor renal function and dose-adjust antibiotics. Drain management per the primary team. (2) Crohn's disease Status: Acute Assessment and plan: GI consulted. Plan to follow patient as an outpatient. Qualifiers: Gastrointestinal tract location: unspecified location Digestive disease complication type: unspecified complication Qualified Code(s): K50.919 - Crohn 's disease, unspecified, with unspecified complications (3) History of hepatitis Status: Acute Infectious Disease HPI - Data of Consult Patient: new to practice Consult date: 06/15/16 Requesting Physician: Cielo Mares MD Primary Care Provider: PCP NO - Consult Narrative Reason for consult: Intra-abdominal abscess History of present illness: Mr. Pennington is a 35 year old male with a past medical history of hepatitis B and C with a remote history of IV drug use. The patient was managed for the hospital June 08 for intra-abdominal abscess. We are consulted June 15 for further evaluation and treatment recommendations regarding intra-abdominal abscess. The patient is a 35-year-old male past medical history as stated above. The patient is somewhat developmentally delayed and is unable to really tell me about the events leading up to his hospitalization. Review of the medical record reveals that the patient came in complaining of abdominal pain that had been intermittent over the past several months. Upon presentation, the patient complained of suprapubic abdominal pain that had started about 2 days prior. Upon arrival, patient was afebrile and hemodynamically stable. Laboratory studies were significant for an ESR of 71 and a CRP of 111. Urinalysis was negative. CT abdomen and pelvis revealed findings consistent with a pelvic abscess secondary to possible Crohn's disease with perforation and concerning signs of a possible fistula. Gen. surgery was consulted but did not feel that the patient required surgical intervention. History on IV Cipro and Flagyl and was admitted for further evaluation and treatment. The patient was taken to the interventional radiology suite and underwent CT-guided drain placement on June 10. Approximately 30 mL of pus was removed that was positive for Escherichia coli. GI service was consulted for the possible Crohn's disease and has opted to pursue further treatment on an outpatient basis. Since admission, the patient has remained afebrile and hemodynamically stable. His white blood cell count has remained normal. Clinically, he states he feels a little bit better. Currently, he is on IV cefepime. We've been asked to evaluate and make further recommendations. During my exam today, the patient states that overall he feels well. He denies any fevers or chills or rigors. He denies a headache or neck pain. He denies any chest pain, shortness of breath, or cough. He denies any nausea, vomiting, diarrhea, or constipation. He states the abdominal pain has markedly improved. He denies pain in his back or extremities. He denies any urinary complaints. He is anxious to be discharged home. CC: Cielo Mares MD Past Med Surg Social Fam HX - Past Medical History Source: old records reviewed, nursing notes reviewed Medical history: hepatitis (B/C - diagnosed at [facility]), other (developmental delay ) Psychiatric history: other - Past Surgical History Surgical History: no surgical history - Social History Smoking Status: Current every day smoker Smokeless Tobacco Status: No (Both e-cigarette and cigarettes ) Alcohol use: none Drug use: none Occupational status: employed Current living situation: Shelter Activity Level: Independent ambulation Recent Out of Country Travel Within the Last 8 Weeks: No Exposure or Possible Exposure to Illness During Travel: No Infectious Disease-CN:Meds No Known Home Drugs 06/08/16 [History] Allergies No Known Allergies Allergy (Verified 06/08/16 12:04) All systems: reviewed and no additional remarkable complaints except as stated Exam - Constitutional Vitals: Temp Pulse Resp BP Pulse Ox 98.1 F 74 16 108/68 96 06/15/16 10:58 06/15/16 10:58 06/15/16 10:58 06/15/16 10:58 06/15/16 10:58 General appearance: average body habitus, cooperative, no acute distress - Head Head exam: Present: atraumatic, normal inspection, normocephalic - Eye Eye exam: Present: EOMI, normal appearance, PERRL Pupils: Present: normal accommodation - ENT ENT exam: Present: mucous membranes moist - Neck Neck exam: Present: normal inspection - Respiratory Respiratory exam: Present: CTAB. Absent: rales, respiratory distress, rhonchi, wheezes - Cardiovascular Cardiovascular exam: Present: RRR, +S1, +S2 - GI/Abdominal GI/Abdominal exam: Present: distended (mild), normal bowel sounds, soft, tenderness (LLQ) Additional comments: Pigtail drain noted to the LLQ with small amount of dark brown serous drainage noted. - Extremities Exam Extremities exam: Present: normal inspection. Absent: joint swelling, pedal edema, tenderness - Neurological Exam Neurological exam: Present: alert, oriented X3, no focal deficits - Psychiatric Psychiatric exam: Present: normal affect, normal mood - Skin Skin exam: Present: dry, intact, normal color, warm Infectious Disease CN: Results - Labs CBC & Chem 7: 06/15/16 04:15 06/15/16 04:15 Cultures: Cultures 06/10/16 14:45 Body Fluid Culture - Final Peritoneal Fluid Escherichia coli Serology: Serology 06/09/16 Range/Units 04:42 Hepatitis A IgM Ab Nonreactive (Nonreactive) Hep Bs Antigen Nonreactive (Nonreactive) Hep B Core IgM Ab Reactive H (Nonreactive) Hepatitis C Ab Screen Reactive H (Nonreactive) Consult Discharge Plan - Plan Referrals: Dexter Escoto DO [Resident] - 07/31/16 1:30 pm
--- NOTE | 2016-06-15 18:02 | Internal Med Progress Note ---
Date of Encounter: 06/15/16 Time of Encounter: 18:00 - Assessment and plan (1) Abdominal abscess Current Visit: Yes Status: Acute (2) Suprapubic abdominal pain Current Visit: Yes Status: Acute (3) History of hepatitis Current Visit: Yes Status: Acute (4) DVT prophylaxis Current Visit: Yes Status: Acute Assessment and plan: 35 y/o male with pmh of admitted with intermittent achy abdominal pain and loose mucous covered stools. CT abdomen/pelvis showing mild wall thickening and submucosal fatty deposition in the terminal ileum with an adjacent complex fluid collection suspicious for an abscess. There is secondary inflammation noted around the appendix and sigmoid colon. Finding are suggestive of Crohn's disease with contained perforation. No known hx of Crohns per pt. # Abdominal Pain: Likely crohns disease with perforation as above. Pt denies any past h/o crohns or ulcerative colitis. IR guided drainage of the abscess done 06/10. c/s sent positive for e.coli. On cefepime based on sensitivities. Added flagyl. Day 6 of IV abx. ID consutled, recommends 7 days of IV abx followed by PO. # Abdominal abscess: As above. On broad spectrum abx coverage. On mesalamine. CT abdomen with contrast done negative for any evidence of fistula, however poor visualization of lower areas per report. On low dose steroids. To follow with GI as outpatient once acute issues resolves for colonoscopy and biopsy. Will remove EMILY drain tomorrow if agreeable with GI. # h/o hepatitis per hx: Hep C positive. Will need outpt f/u. # DVT Prophylaxis: Sub Q heparin - Time Spent With Patient 25 - 35 minutes - Subjective Interval history: seen and examined at bedside.Reports improvement in abdominal pain. Abdominal pain better. EMILY drain less than 10 cc - Constitutional Vitals: Temp Pulse Resp BP Pulse Ox 97.8 F 57 16 104/66 96 06/15/16 15:12 06/15/16 15:12 06/15/16 15:12 06/15/16 15:12 06/15/16 15:12 General appearance: Present: cooperative, A&O X 3, pleasant. Absent: no acute distress - Head Head exam: Present: atraumatic, normocephalic - Eye Eye exam: Present: PERRL, conjuntiva pink, sclera anicteric Pupils: Present: PERRL - Neck Neck exam general surgery: Present: supple, trachea midline. Absent: lymphadenopathy - Respiratory Respiratory exam: Present: CTAB. Absent: accessory muscle use, rales, rhonchi, wheezes - Cardiovascular Cardiovascular exam: Present: RRR, +S1, +S2. Absent: diastolic murmur, gallop, rubs, systolic murmur - GI/Abdominal GI/Abdominal exam: Present: normal bowel sounds, soft, no peritoneal signs. Absent: distended, tenderness - Extremities Exam Extremities exam: Present: warm, radial pulses palpable and symetrical. Absent : calf tenderness, cyanotic, pedal edema - Neurological Exam Neurological exam: Present: CN II-XII intact, oriented X3, no focal deficits. Absent: pronater drift, facial droop, speech deficit - Skin Skin exam: Present: dry, intact Internal Medicine: Result - Labs CBC & Chem 7: 06/15/16 04:15 06/15/16 04:15 Labs: Short CBC 06/15/16 Range/Units 04:15 WBC 3.6 L (4.3-11.1) K/mcL Hgb 13.5 (12.9-16.9) g/dL Hct 39.8 (37.5-50.1) % Plt Count 343 (140-400) K/mcL Neutrophils # 1.6 (1.6-8.9) K/mcL BMP 06/15/16 04:15 Sodium 142 Potassium 4.2 Chloride 108 Carbon Dioxide 25 BUN 6 L Creatinine 0.77 Glucose 98 Calcium 9.4 - ABG Interpretation ABG results: PT/INR, D-dimer PT 15.6 Seconds (9.4-12.1) H 06/09/16 04:42 Consult Discharge Plan - Plan Referrals: Dexter Escoto DO [Resident] - 07/31/16 1:30 pm
[2016-06-15] MEDS: *HR* HYDROcodone/Acet 5/325 mg TABLET PO PRN (21:37)
[2016-06-16] MEDS: Cefepime HCl 1,000 MG in D5% in Water (Mini-Bag+) 100 ML IVPB SCH ×2 (04:43→13:49)
[2016-06-16] MEDS: *HR* Heparin 5,000 UNIT/ML VIAL SQ SCH (04:48)
[2016-06-16 04:53] LABS: Basophils % 0.8 %; Eosinophils # 0.2 K/mcL (0.0-0.6); Eosinophils % 3.7 %; Hemoglobin 13.5 g/dL (12.9-16.9); Immature Granulocytes % 0.2 % (0-4); Lymphocytes # 1.6 K/mcL (0.6-4.6); Mean Corpuscular HGB Conc 33.8 g/dL (31.6-35.5); Mean Corpuscular Volume 91.7 fL (83.0-100.0); Mean Platelet Volume 10.2 fL (9.4-12.4); Monocytes # 0.4 K/mcL (0.0-1.3); Monocytes % 8.1 %; Neutrophils # 2.8 K/mcL (1.6-8.9); Platelet Count 318 K/mcL (140-400); Red Blood Count 4.36 M/mcL (4.19-5.50); Red Cell Distribution Width 12.7 % (11.5-14.5); Segmented Neutrophils % 55.2 %
[2016-06-16 05:25] LABS: BUN/Creatinine Ratio 10 (6-26); Blood Urea Nitrogen 8 mg/dL (8-26); Calcium 9.7 mg/dL (8.6-10.8); Carbon Dioxide 25 mEq/L (19-29); Chloride 107 mEq/L (98-109); Glucose 107 mg/dL (70-99); Osmolality,Calculated 291 (280-300); Potassium 4.1 mEq/L (3.5-4.5); Sodium 141 mEq/L (136-145); eGFR For African Americans > 60 (> 60); eGFR For Non-African Americans > 60 (> 60)
--- NOTE | 2016-06-16 08:18 | Discharge Summary ---
Date of Encounter: 06/16/16 Time of Encounter: 17:07 - Discharge Diagnosis (1) Abdominal abscess Priority: Primary Status: Acute (2) Suprapubic abdominal pain Priority: Secondary Status: Acute (3) History of hepatitis Priority: Secondary Status: Acute (4) DVT prophylaxis Priority: Secondary Status: Acute - Discharge Medications Prescriptions: Cefixime [Suprax] 400 mg PO BID 7 Days Mesalamine [Pentasa] 1,000 mg PO QID #90 capsule.er MetroNIDAZOLE [Flagyl] 500 mg PO TID 7 Days Home Medications: Cefixime [Suprax] 400 mg PO BID 7 Days 06/16/16 [Rx] Mesalamine [Pentasa] 1,000 mg PO QID #90 capsule.er 06/16/16 [Rx] MetroNIDAZOLE [Flagyl] 500 mg PO TID 7 Days 06/16/16 [Rx] Allergies/Adverse Reactions: Allergies No Known Allergies Allergy (Verified 06/08/16 12:04) Date of admission: 06/08/16 16:53 Primary care physician: PCP NO Consults: 06/08/16 16:58 Consult to Surgery [CONS] Routine Consulting Provider: [facility] Reason for Consult: Terminal ileum abscess, likely with Crohn's disease. Risk for fistula formation. Appreciate surgery on board. Call Completed: Yes 06/08/16 17:13 Consult to Interventional Radiology [CONS] Routine Consulting Provider: Radiology [facility] Reason for Consult: Intra-abdominal abscess; drain placement Time Notified: 16:00 Call Completed: Yes 06/09/16 12:58 Consult to Automation Sales Manager [CONS] Routine Reason for SW Consult: Discharge planning 06/13/16 11:42 Consult to Infectious Diseases [CONS] Routine Consulting Provider: Infectious Disease [facility] Reason for Consult: Antibiotic management Call Completed: Yes - Patient Status Disposition: Home, Self-Care Condition: Good Overall status at discharge: patient is progressing back to baseline - Discharge Instructions Follow Up With: Juliet Smith CNP [Advanced Practice Nurse] - 06/24/16 2:40 pm Dexter Escoto DO [Resident] - 07/31/16 1:30 pm - Diet and Activity Activity: increase activity as tolerated Diet: advance to your usual diet Interval History: 35 y/o male with pmh of admitted with intermittent achy abdominal pain and loose mucous covered stools. CT abdomen/pelvis showing mild wall thickening and submucosal fatty deposition in the terminal ileum with an adjacent complex fluid collection suspicious for an abscess. There is secondary inflammation noted around the appendix and sigmoid colon. Finding are suggestive of Crohn's disease with contained perforation. No known hx of Crohns per pt. Patient underwent IR guided drainage of the abscess. EMILY drain with minimal discharge in the last 4 days and was pulled this am. He is afebrle and WBC count has trended down. patientw as evaluated by GI , recommende completing 7 days f IV abdx and continueing pO abx for 7 more days. Patient dsicharged on PO cefixime and flagyl. He has scheuled appointent with ID in one week. Patient was evaluated by GI and recommended out pt follow up in 4 - 6 weeks. Patient clinically better, remains afebrile and is dsicharged home. He is recommended to f/u with PCP in one week. Hemodynamically stable at the time of d/c Treatment plan exaplined in detail and adequate time given for answering all questions. To follow: continue PO abx for 7 more days. ID follow up in one week GI follow up in 3-4 weeks Hepatitis C positive, Needs outpt follow up for the same. Hospital course: Mr. Pennington is a 35 year old male - Time Spent with Patient Total time spent providing and/or coordinating discharge services: Greater than 30 minutes - Constitutional Vitals: Temp Pulse Resp BP Pulse Ox 97.9 F 54 17 112/70 98 06/16/16 07:48 06/16/16 07:48 06/16/16 07:48 06/16/16 07:48 06/16/16 07:48 General appearance: Present: cooperative, A&O X 3, pleasant. Absent: no acute distress
[2016-06-16] MEDS: Mesalamine 250 MG CAPSULE.ER PO SCH ×2 (09:33→13:49)
--- NOTE | 2016-06-16 11:15 | Gastroenterology Progress Note ---
Date of Encounter: 06/16/16 Time of Encounter: 10:50 - Assessment and plan (1) Abdominal abscess Current Visit: Yes Status: Acute Assessment and plan: Recommend continuing IV antibiotic for 4 weeks, then 2 weeks of PO antibiotics. Follow up with Dr. Jacobs in 3 weeks. (2) Suprapubic abdominal pain Current Visit: Yes Status: Acute (3) History of hepatitis Current Visit: Yes Status: Acute Assessment and plan: History of hepatitis B/C. (4) Crohn's disease Current Visit: Yes Status: Acute Assessment and plan: Pt to follow up with Dr. Jacobs as outpatient for Crohn's disease 3 weeks after discharge. Qualifiers: Gastrointestinal tract location: unspecified location Digestive disease complication type: unspecified complication Qualified Code(s): K50.919 - Crohn 's disease, unspecified, with unspecified complications - Time Spent With Patient Total time spent is greater than 50% in coordination of care (as documented) at patient's floor/unit and/or counseling patient: - Subjective Interval history: Pt reports feeling better today, and is tolerating PO intake. - Constitutional Vitals: Temp Pulse Resp BP Pulse Ox 97.9 F 54 17 112/70 98 06/16/16 07:48 06/16/16 07:48 06/16/16 07:48 06/16/16 07:48 06/16/16 07:48 General appearance: Present: cooperative, A&O X 3, no acute distress, answers questions appropriately - Head Head exam: Present: atraumatic, normocephalic - Eye Eye exam: Present: normal appearance, sclera anicteric - ENT ENT exam: Present: mucous membranes moist - Neck Neck exam general surgery: Present: normal inspection, trachea midline - Respiratory Respiratory exam: Present: CTAB. Absent: rales, rhonchi - Cardiovascular Cardiovascular exam: Present: RRR, +S1, +S2 - GI/Abdominal GI/Abdominal exam: Present: soft, no peritoneal signs. Absent: distended, firm , guarding, tenderness - Rectal Rectal exam: Present: deferred - Extremities Exam Extremities exam: Present: warm - Neurological Exam Neurological exam: Present: no focal deficits - Psychiatric Psychiatric exam: Present: normal affect, normal mood - Skin Skin exam: Present: dry, intact, normal color, warm Results - Labs CBC & Chem 7: 06/16/16 04:09 06/16/16 04:09 Labs: Last Result ESR 71 mm/hr (0-10) H 06/08/16 16:29 Calcium 9.7 mg/dL (8.6-10.8) 06/16/16 04:09 C-Reactive Protein 111 mg/L (Less than 5) H 06/08/16 16:29 Entire Visit Hgb 13.5 g/dL (12.9-16.9) 06/16/16 04:09 Hct 40.0 % (37.5-50.1) 06/16/16 04:09 PT 15.6 Seconds (9.4-12.1) H 06/09/16 04:42 Total Bilirubin 0.7 mg/dL (0.2-1.2) 06/09/16 04:42 AST 14 Units/L (5-34) 06/09/16 04:42 ALT 18 Units/L (0-55) 06/09/16 04:42 Amylase 35 Units/L (25-125) 06/08/16 12:25 Lipase 11 Units/L (8-78) 06/08/16 12:25 S.cerevisiae IgG Ab 4.6 Units (0.0-24.9) 06/08/16 16:29 S.cerevisiae IgA Ab 15.6 Units (0.0-24.9) 06/08/16 16:29 - ABG ABG results: PT/INR, D-dimer PT 15.6 Seconds (9.4-12.1) H 06/09/16 04:42 Consult Discharge Plan - Plan Referrals: Dexter Escoto DO [Resident] - 07/31/16 1:30 pm Prescriptions: Cefixime [Suprax] 400 mg PO BID 7 Days Mesalamine [Pentasa] 1,000 mg PO QID #90 capsule.er MetroNIDAZOLE [Flagyl] 500 mg PO TID 7 Days
[2016-06-16 11:39] VITALS: BP 107/75
--- NOTE | 2016-06-16 11:48 | Infectious Disease Progress No ---
Date of Encounter: 06/16/16 Time of Encounter: 11:46 - Assessment and Plan (1) Abdominal abscess Current Visit: Yes Status: Acute CT of the abdomen and pelvis showed a complex fluid collection in the pelvis measuring 6.4 x 4.4 x 4.1 cm, compatible with an abscess. The collection appeared to be adjacent to the terminal ileum, suggestive of Crohn's disease with contained perforation. Likely secondary to perforation of the terminal ileum secondary to Crohn's disease. Status post CT-guided pigtail drain placement on June 10 by interventional radiology. Approximately 30 mL's of pus was aspirated. Causative organism is Escherichia coli, resistant flouroquinolones. The patient's drain has had 50ml of output today. Consider repeating CT of the abdomen and pelvis to evaluate for resolution of the abscess prior to drain removal. Currently on day 7 of IV antibiotics since drain placement. Continue cefepime 2 g IV every 12 hours (day 7). Start Flagyl 500 mg by mouth 3 times a day for anaerobic coverage. Duration of treatment depends on the clinical picture, but given that the source of the patient's infection has been controlled adequately and he has not had any sepsis criteria, would recommend completing a 7 day course of IV antibiotics and then switching to oral Suprax plus Flagyl to complete a 14 day course. Treat through 06/23/16. Monitor renal function and dose-adjust antibiotics. Drain management per the primary team. (2) Crohn's disease Current Visit: Yes Status: Acute GI consulted. Plan to follow patient as an outpatient. Qualifiers: Gastrointestinal tract location: unspecified location Digestive disease complication type: unspecified complication Qualified Code(s): K50.919 - Crohn 's disease, unspecified, with unspecified complications (3) History of hepatitis Current Visit: Yes Status: Acute - Subjective Interval history: Patient seen and examined. No acute events noted overnight. Patient states he feels okay overall. Denies fevers or chills. Denies chest pain, shortness of breath, or cough. Denies nausea or vomiting. States he ate most of his breakfast , but had diarrhea shortly after. Reports some mild, intermittent abdominal aching, but nothing persistent or sharp. He denies pain in his extremities or back. He denies oral thrush or skin/mouth lesions. Infect Dis PN-Objective Data - Labs CBC & Chem 7: 06/16/16 04:09 06/16/16 04:09 Labs: Laboratory Results - last 24 hr 06/16/16 06/16/16 04:09 04:09 WBC 5.1 RBC 4.36 Hgb 13.5 Hct 40.0 MCV 91.7 MCH 31.0 MCHC 33.8 RDW 12.7 Plt Count 318 MPV 10.2 Immature Gran % 0.2 Seg Neutrophils % 55.2 Lymphocytes % 32.0 Monocytes % 8.1 Eosinophils % 3.7 Basophils % 0.8 Neutrophils # 2.8 Lymphocytes # 1.6 Monocytes # 0.4 Eosinophils # 0.2 Basophils # 0.0 Sodium 141 Potassium 4.1 Chloride 107 Carbon Dioxide 25 BUN 8 Creatinine 0.78 Est GFR ( Amer) > 60 Est GFR (Non-Af Amer) > 60 BUN/Creatinine Ratio 10 Glucose 107 H Calculated Osmolality 291 Calcium 9.7 Cultures: Cultures 06/10/16 14:45 Body Fluid Culture - Final Peritoneal Fluid Escherichia coli Serology 06/09/16 Range/Units 04:42 Hepatitis A IgM Ab Nonreactive (Nonreactive) Hep Bs Antigen Nonreactive (Nonreactive) Hep B Core IgM Ab Reactive H (Nonreactive) Hepatitis C Ab Screen Reactive H (Nonreactive) Exam - Constitutional Vitals: Temp Pulse Resp BP Pulse Ox 98.0 F 85 16 107/75 97 06/16/16 11:39 06/16/16 11:39 06/16/16 11:39 06/16/16 11:39 06/16/16 11:39 General appearance: average body habitus, cooperative, no acute distress - Head Head exam: Present: atraumatic, normal inspection, normocephalic - Eye Eye exam: Present: EOMI, normal appearance, PERRL Pupils: Present: normal accommodation - ENT ENT exam: Present: mucous membranes moist - Neck Neck exam: Present: normal inspection - Respiratory Respiratory exam: Present: CTAB. Absent: rales, respiratory distress, rhonchi, wheezes - Cardiovascular Cardiovascular exam: Present: RRR, +S1, +S2 - GI/Abdominal GI/Abdominal exam: Present: normal bowel sounds, soft, tenderness (LLQ). Absent : distended - Extremities Exam Extremities exam: Present: normal inspection. Absent: joint swelling, pedal edema, tenderness - Neurological Exam Neurological exam: Present: alert, oriented X3, no focal deficits - Psychiatric Psychiatric exam: Present: normal affect, normal mood - Skin Skin exam: Present: dry, intact, normal color, warm Consult Discharge Plan - Plan Referrals: Dexter Escoto DO [Resident] - 07/31/16 1:30 pm Prescriptions: Cefixime [Suprax] 400 mg PO BID 7 Days Mesalamine [Pentasa] 1,000 mg PO QID #90 capsule.er MetroNIDAZOLE [Flagyl] 500 mg PO TID 7 Days
[2016-06-16] MEDS: metroNIDAZOLE 500 MG TABLET PO SCH ×2 (13:49→14:11)
== END 2016-06-16 16:38 | disposition home or self-care (01) | DRG 248 ==
LOC: 3BNU 11:27 → EMEROO 11:27 → 3BNU 16:20
PROVIDERS: ADMIT Registered Nurse; ATTEND Internal Medicine Pulmonary Disease
PROC: IRDRAIN (2016-06-10 12:00)